=== PATIENT | male | born 1950 | race Caucasian/White ===

== ENCOUNTER 2020-01-31 17:00 | Outpatient (CLI) | payer MEDICARE, SELFPAY ==
[2020-01-31 18:06] LABS: Alanine Aminotransferase 32 U/L (4-50); Albumin Level 4.3 g/dL (3.5-5.1); Alkaline Phosphatase 100 U/L (38-126); Aspartate Amino Transferase 42 U/L (17-59); Bilirubin,Total 0.8 mg/dL (0.2-1.3); Blood Urea Nitrogen 17 mg/dL (9-20); Carbon Dioxide 25 mmol/L (22-30); Chloride 106 mmol/L (98-107); Cholesterol 137 mg/dL (0-200); Estimated Glomerular Filt Rate > 60; Glucose 78 mg/dL (75-110); HDL Direct 44 mg/dL; Potassium 3.7 mmol/L (3.4-5.0); Sodium 140 mmol/L (137-145); Triglycerides 86 mg/dL (<150)
[2020-01-31 18:19] LABS: LDL Cholesterol Direct 68 mg/dL
[2020-01-31 18:35] LABS: Hemoglobin A1C 6.6 % (<5.7); Prostate Specific Antigen 0.5 ng/mL (< OR = 4.0)
[2020-01-31 18:36] LABS: MALB Creatinine Ratio 10.9 mg/g (0-30); Microalbumin Urine Random 9.9 mg/L (0-16.7)
== END 2020-01-31 17:01 | disposition home or self-care (01) ==
PROVIDERS: PCP Internal Medicine; Visit Provider Nurse Practitioner
DX: E11.59 Type 2 diabetes mellitus with other circulatory complications (principal); Z79.4 Long term (current) use of insulin; E78.5 Hyperlipidemia, unspecified; Z12.5 Encounter for screening for malignant neoplasm of prostate
CPT/HCPCS: 36415; 80053; 80061; 82043; 83036; 84153; G0103

== ENCOUNTER 2020-03-12 13:26 | Outpatient (CLI) | payer MEDICARE, SELFPAY ==
--- NOTE | ~2020-03-12 | XR_ITS ---
EXAMINATION: XR chest 2V EXAM DATE: 03/12/2020 13:41 INDICATION: Cough without fever. TECHNIQUE: Frontal and lateral projections of the chest obtained and reviewed. Comparison is made to prior examination from 10/22/2014. FINDINGS: Left upper lobe granuloma. Small amount of left basilar linear scarring. The lungs are oth erwise clear. There are no pleural effusions. The cardiomediastinal silhouette is within normal ny its. There is no pneumothorax suspected. There are mild bony degenerative changes. IMPRESSION: No acute cardiopulmonary findings. Reviewed, dictated and finalized at location B.
== END 2020-03-12 13:27 | disposition home or self-care (01) ==
PROVIDERS: PCP Internal Medicine; Visit Provider Internal Medicine
DX: R05 Cough (principal)
CPT/HCPCS: 71046

== ENCOUNTER 2020-08-18 12:58 | Outpatient (CLI) | payer MEDICARE, SELFPAY ==
[2020-08-18 14:10] LABS: Hemoglobin A1C 6.3 % (<5.7)
== END 2020-08-18 12:59 | disposition home or self-care (01) ==
LOC: ANHLAB 12:59
PROVIDERS: PCP Internal Medicine; Visit Provider Internal Medicine
DX: E11.59 Type 2 diabetes mellitus with other circulatory complications (principal); I10 Essential (primary) hypertension
CPT/HCPCS: 36415; 83036

== ENCOUNTER 2021-02-13 14:37 | Outpatient (CLI) | payer MEDICARE, SELFPAY ==
[2021-02-13 16:29] LABS: Alanine Aminotransferase 43 U/L (4-50); Albumin Level 4.1 g/dL (3.5-5.1); Alkaline Phosphatase 105 U/L (38-126); Anion Gap 8 mmol/L (8-16); Aspartate Amino Transferase 47 U/L (17-59); Blood Urea Nitrogen 20 mg/dL (9-20); Calcium 9.4 mg/dL (8.4-10.2); Carbon Dioxide 28 mmol/L (22-30); Chloride 108 mmol/L (98-107); Cholesterol 152 mg/dL (0-200); Estimated Glomerular Filt Rate 60; Glucose 151 mg/dL (75-110); HDL Direct 43 mg/dL; Potassium 4.1 mmol/L (3.4-5.0); Sodium 144 mmol/L (137-145); Triglycerides 91 mg/dL (<150)
[2021-02-13 16:40] LABS: LDL Cholesterol Direct 73 mg/dL
[2021-02-13 17:08] LABS: Hemoglobin A1C 6.5 % (<5.7)
[2021-02-13 17:16] LABS: Prostate Specific Antigen 0.5 ng/mL (< OR = 4.0)
== END 2021-02-13 14:38 | disposition home or self-care (01) ==
PROVIDERS: PCP Internal Medicine; Visit Provider Nurse Practitioner
DX: E78.5 Hyperlipidemia, unspecified (principal); Z12.5 Encounter for screening for malignant neoplasm of prostate; E11.9 Type 2 diabetes mellitus without complications
CPT/HCPCS: 36415; 80053; 80061; 83036; 84153; G0103

== ENCOUNTER 2021-08-20 17:37 | Outpatient (CLI) | payer MEDICARE, SELFPAY ==
[2021-08-20 18:28] LABS: Alanine Aminotransferase 48 U/L (4-50); Albumin Level 4.6 g/dL (3.5-5.1); Alkaline Phosphatase 118 U/L (38-126); Anion Gap 12 mmol/L (8-16); Aspartate Amino Transferase 47 U/L (17-59); Blood Urea Nitrogen 16 mg/dL (9-20); Calcium 9.3 mg/dL (8.4-10.2); Carbon Dioxide 24 mmol/L (22-30); Chloride 106 mmol/L (98-107); Cholesterol 145 mg/dL (0-200); Estimated Glomerular Filt Rate > 60; Glucose 61 mg/dL (65-110); HDL Direct 45 mg/dL; Potassium 3.2 mmol/L (3.4-5.0); Sodium 142 mmol/L (137-145); Triglycerides 136 mg/dL (<150)
[2021-08-20 18:39] LABS: LDL Cholesterol Direct 70 mg/dL
[2021-08-20 19:08] LABS: Creatinine Urine 129.8 mg/dL
[2021-08-20 19:12] LABS: MALB Creatinine Ratio 9.9 mg/g (0-30); Microalbumin Urine Random 12.9 mg/L (0-16.7)
== END 2021-08-20 17:38 | disposition home or self-care (01) ==
LOC: ANHLAB 17:39
PROVIDERS: PCP Internal Medicine; Visit Provider Nurse Practitioner
DX: E11.59 Type 2 diabetes mellitus with other circulatory complications (principal); E78.2 Mixed hyperlipidemia
CPT/HCPCS: 36415; 80053; 80061; 82043; 83036

== ENCOUNTER 2021-11-03 08:36 | Outpatient (CLI) | payer MEDICARE, SELFPAY ==
[2021-11-03 09:10] LABS: Potassium 4.1 mmol/L (3.4-5.0)
== END 2021-11-03 08:37 | disposition home or self-care (01) ==
PROVIDERS: PCP Internal Medicine; Visit Provider Nurse Practitioner
DX: E87.6 Hypokalemia (principal); R63.5 Abnormal weight gain
CPT/HCPCS: 36415; 84132; 84443

== ENCOUNTER 2021-11-30 09:24 | Outpatient (CLI) | payer MEDICARE, SELFPAY ==
--- NOTE | ~2021-11-30 | NM_ITS ---
EXAMINATION: NM lynn stress w perfusion DATE: 11/30/2021 11:23 INDICATION: Unspecified chest pain TECHNIQUE: Rest images were obtained following intravenous administration of 9.4 mCi Tc99m tetrofosmi n (Myoview). Data was reconstructed into short axis and horizontal and vertical long axis SPECT image s. The patient declined the stress portion of the examination with no additional injection of radioph armaceutical or imaging. Data was reconstructed into short axis and horizontal and vertical long axis SPECT images. COMPARISON: 12/20/2007 FINDINGS: There is a similar pattern of mild decreased activity along the inferior wall from the apex to the base likely related to diaphragmatic attenuation artifact although could not exclude decrease d perfusion either related to ischemia or infarct. IMPRESSION: 1. Limited rest perfusion only study with study terminated at patient request prior to induction of s tress with no post stress or gated imaging obtained. 2. Decreased activity along the inferior wall similar to that seen on the prior study likely related to diaphragmatic attenuation artifact although differential includes ischemia or infarct. Reviewed, dictated and finalized at location A. IMPRESSION: 1. Limited rest perfusion only study with study terminated at patient request p rior to induction of stress with no post stress or gated imaging obtained. 2. Decreased activity along the inferior wall similar to that seen on the prior study likely related to diaphragmatic attenuation artifact although differenti al includes ischemia or infarct.
== END 2021-11-30 09:25 | disposition home or self-care (01) ==
PROVIDERS: PCP Internal Medicine; Visit Provider Nurse Practitioner
DX: R07.9 Chest pain, unspecified (principal)
CPT/HCPCS: 78452; A9502

== ENCOUNTER 2022-03-03 08:58 | Outpatient (CLI) | payer MEDICARE, SELFPAY ==
[2022-03-03 10:07] LABS: Alanine Aminotransferase 25 U/L (6-50); Albumin Level 4.1 g/dL (3.5-5.1); Alkaline Phosphatase 88 U/L (38-126); Anion Gap 6 mmol/L (8-16); Aspartate Amino Transferase 34 U/L (17-59); Bilirubin,Total 0.8 mg/dL (0.2-1.3); Blood Urea Nitrogen 23 mg/dL (9-20); Calcium 8.7 mg/dL (8.4-10.2); Carbon Dioxide 26 mmol/L (22-30); Chloride 112 mmol/L (98-107); Cholesterol 106 mg/dL (0-200); Estimated Glomerular Filt Rate 60; Glucose 62 mg/dL (65-110); HDL Direct 37 mg/dL; Sodium 144 mmol/L (137-145); Triglycerides 62 mg/dL (<150)
[2022-03-03 10:08] LABS: Hemoglobin A1C 5.1 % (<5.7)
[2022-03-03 10:19] LABS: LDL Cholesterol Direct 48 mg/dL
[2022-03-03 10:38] LABS: Prostate Specific Antigen 0.5 ng/mL (< OR = 4.0)
== END 2022-03-03 08:59 | disposition home or self-care (01) ==
PROVIDERS: PCP Internal Medicine; Visit Provider Internal Medicine
DX: E11.59 Type 2 diabetes mellitus with other circulatory complications (principal); I10 Essential (primary) hypertension; Z12.5 Encounter for screening for malignant neoplasm of prostate; E78.5 Hyperlipidemia, unspecified
CPT/HCPCS: 36415; 80053; 80061; 83036; 84153; G0103

== ENCOUNTER 2022-09-08 13:44 | Outpatient (CLI) | payer MEDICARE, SELFPAY ==
[2022-09-08 14:36] LABS: Hemoglobin A1C 4.6 % (<5.7)
[2022-09-08 14:41] LABS: Alanine Aminotransferase 38 U/L (6-50); Albumin Level 4.4 g/dL (3.5-5.1); Alkaline Phosphatase 151 U/L (38-126); Anion Gap 9 mmol/L (8-16); Aspartate Amino Transferase 44 U/L (17-59); Bilirubin,Total 1.2 mg/dL (0.2-1.3); Blood Urea Nitrogen 23 mg/dL (9-20); Calcium 9.5 mg/dL (8.4-10.2); Carbon Dioxide 24 mmol/L (22-30); Chloride 107 mmol/L (98-107); Cholesterol 121 mg/dL (0-200); Estimated Glomerular Filt Rate 60; Glucose 102 mg/dL (65-110); HDL Direct 42 mg/dL; Potassium 4.6 mmol/L (3.4-5.0); Sodium 140 mmol/L (137-145); Triglycerides 76 mg/dL (<150)
[2022-09-08 14:52] LABS: LDL Cholesterol Direct 52 mg/dL
[2022-09-08 15:10] LABS: Prostate Specific Antigen 0.7 ng/mL (< OR = 4.0)
== END 2022-09-08 13:45 | disposition home or self-care (01) ==
LOC: ANHLAB 13:47
PROVIDERS: PCP Internal Medicine; Visit Provider Nurse Practitioner
DX: E11.59 Type 2 diabetes mellitus with other circulatory complications (principal); E78.2 Mixed hyperlipidemia; Z12.5 Encounter for screening for malignant neoplasm of prostate
CPT/HCPCS: 36415; 80053; 80061; 83036; 84153; G0103

== ENCOUNTER 2022-09-09 13:19 | Outpatient (CLI) | payer MEDICARE, SELFPAY ==
[2022-09-09 14:46] LABS: Creatinine Urine 64.7 mg/dL
[2022-09-09 15:22] LABS: MALB Creatinine Ratio < 9.3 mg/g (0-30); Microalbumin Urine Random < 6.0 mg/L (0-16.7)
== END 2022-09-09 13:20 | disposition home or self-care (01) ==
LOC: ANHLAB 13:19
PROVIDERS: PCP Internal Medicine; Visit Provider Nurse Practitioner
DX: E11.59 Type 2 diabetes mellitus with other circulatory complications (principal)
CPT/HCPCS: 82043

== ENCOUNTER 2022-09-24 09:15 | Outpatient (CLI) | payer MEDICARE, SELFPAY ==
--- NOTE | 2022-09-24 09:38 | ECHO_ITS ---
Patient Info Name: Eric Junior Age: 72 years : 1950 Gender: Male Ht: 70 in Wt: 255 lbs BSA: 2.43 m2 HR: 78 bpm BP: 139 / 59 mmHg Technical Quality: Fair Exam Date: 09/24/2022 9:44 AM Exam Location: [facility] Patient Status: Outpatient Admit Date: 09/24/2022 Staff Ordering Physician: Willy Baca APRN Director Customer: Paola Sarabia RDCS Attending Provider: Willy Baca APRN Referring Physician: Keven VILLATORO; Exam Type: CA echo doppler color flow Study Info Indications I48.0 - Paroxysmal atrial fibrillation Complete two-dimensional, color flow and Doppler transthoracic echocardiogram is performed. Summary 1. Complete two-dimensional, color flow and Doppler transthoracic echocardiogram is performed. 2. Left ventricular chamber dimension is normal. 3. Left ventricular systolic function is normal, estimated at 65-70%. 4. There is mildly increased left ventricular wall thickness. 5. The left ventricular diastolic function is grade II diastolic dysfunction. 6. E/e' 16 is elevated. 7. Global longitudinal strain is abnormal at -14.8%. 8. Left atrial chamber dimension is moderately enlarged. 9. There is moderate aortic valve sclerosis. 10. The mitral valve has moderately calcified annulus. 11. There is mild mitral valve regurgitation. 12. There is trace tricuspid valve regurgitation. 13. Severe pulmonary hypertension, estimated pulmonary arterial systolic pressure is 62 mmHg. Left Ventricle E/e' 16 is elevated. Global longitudinal strain is abnormal at -14.8%. Left ventricular chamber dimension is normal. Left ventricular systolic function is normal, estimated at 65-70%. There is mildly increased left ventricular wall thickness. The left ventricular diastolic function is grade II diastolic dysfunction. Right Ventricle Right ventricular systolic function is normal and with normal TAPSE 2.2 cm. Right ventricular chamber dimension is normal. Left Atria Left atrial chamber dimension is moderately enlarged. Right Atria Right atrial chamber dimension is normal. Aortic Valve The aortic valve is trileaflet. There is moderate aortic valve sclerosis. There is no aortic valve stenosis. There is no aortic valve regurgitation. Pulmonic Valve There is no pulmonic regurgitation. Mitral Valve The mitral valve has moderately calcified annulus. There is no mitral valve stenosis. There is mild mitral valve regurgitation. Tricuspid Valve There is trace tricuspid valve regurgitation. Severe pulmonary hypertension, estimated pulmonary arterial systolic pressure is 62 mmHg. Pericardium/Pleural There is no pericardial effusion. Inferior Vena Cava Normal inferior vena cava with >50% collapse upon inspiration consistent with normal right atrial pressure, 5 mmHg. Aorta The aortic root size at the sinus of Valsalva is normal. Left Ventricular Outflow Tract Name Value Normal LVOT 2D LVOT Diameter 2.0 cm LVOT Doppler LVOT Peak Gradient 10 mmHg LVOT Mean Gradient 7 mmHg LVOT VTI 40 c
== END 2022-09-24 09:16 | disposition home or self-care (01) ==
LOC: ANHCARD 09:17
PROVIDERS: PCP Internal Medicine; Visit Provider Nurse Practitioner
DX: I48.91 Unspecified atrial fibrillation (principal)
CPT/HCPCS: 93306

== ENCOUNTER 2022-10-18 12:30 | Observation (INO) | payer MEDICARE, SELFPAY ==
[2022-10-18] VITALS (20 sets, daily range): BP systolic 120–149; BP diastolic 50–71; PULSE 85–99; RESP 13–20; TEMP 36.4–36.9; O2SAT 95–97; BMI 37.0; BMI 37.6
--- NOTE | ~2022-10-18 | CT_ITS ---
EXAMINATION: CT brain wo con DATE: 10/18/2022 15:59 INDICATION: Fall. TECHNIQUE: Computed tomography (CT) of the head was performed without intravenous contrast. The mA wa s adjusted according to patient size. Iterative reconstruction technique was employed. The dose-lengt h product was 756.67 mGy-cm. COMPARISON: None FINDINGS: There is an old infarct in the right thalamus. There are scattered areas of low attenuation in the cerebral white matter and carey. There is no intracranial hemorrhage, acute infarction, or abn ormal intracranial mass lesion. The ventricles are normal in size. There are likely changes of right ocular lens replacement surgery. There is extensive dental disease. There is mild mucosal thickening in the paranasal sinuses. The mastoid air cells are normal. IMPRESSION: 1. 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 2. Mild nonspecific cerebral white matter disease and pontine disease, which likely represents chroni c small vessel ischemic disease. Reviewed, dictated and finalized at location A. ER DIETARY SERVICE MANAGER IMPRESSION: 1. 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 2. Mild nonspecific cerebral white matter disease and pontine disease, which laura degroot represents chronic small vessel ischemic disease.
--- NOTE | ~2022-10-18 | CT_ITS ---
EXAMINATION: CT cervical spine wo con DATE: 10/18/2022 15:59 INDICATION: Neck injury. Fall. TECHNIQUE: Computed tomography (CT) of the cervical spine was performed without intravenous contrast. Automated exposure control and iterative reconstruction technique were employed. The dose-length pro duct was 469.44 mGy-cm. COMPARISON: None FINDINGS: There is 5 degrees dextrocurvature of cervical spine. There is 2 mm anterolisthesis of C4 o n C5 and C7 on T1. Vertebral body heights are normal. There is mildly decreased disc height at C2-C3 and C4-C5 and severely decreased disc height at C5-C6 and C6-C7. The following disc levels are specif ically discussed: C2-C3: There is severe right and moderate left uncovertebral joint osteoarthritis. There is severe bi lateral facet joint osteoarthritis. There is moderate right and mild left neural foraminal stenosis. There is no central canal stenosis. C3-C4: There is severe right and mild left uncovertebral joint osteoarthritis. There is severe bilate ral facet joint osteoarthritis. There is moderate right and mild left neural foraminal stenosis. Ther e is mild central canal stenosis. C4-C5: There is mild right and severe left uncovertebral joint osteoarthritis. There is mild right an d severe left facet joint osteoarthritis. There is moderate left neural foraminal stenosis. There is mild central canal stenosis. C5-C6: There is severe bilateral uncovertebral joint osteoarthritis. There is severe bilateral facet joint osteoarthritis. There is moderate bilateral neural foraminal stenosis. There is mild central ca nal stenosis. C6-C7: There is severe bilateral uncovertebral joint osteoarthritis. There is severe bilateral facet joint osteoarthritis. There is mild bilateral neural foraminal stenosis. There is mild central canal stenosis. C7-T1: There is no uncovertebral joint osteoarthritis. There is severe bilateral facet joint osteoart hritis. There is mild bilateral neural foraminal stenosis. There is mild central canal stenosis. IMPRESSION: 1. No fracture. 2. Severe cervical spondylosis. Reviewed, dictated and finalized at location A. PATIONAL THERAPIST HOME BASED
--- NOTE | ~2022-10-18 | XR_ITS ---
EXAMINATION: XR hip RT min 3V w AP pelvis DATE: 10/18/2022 16:40 INDICATION: Right hip pain post fall TECHNIQUE: Anteroposterior view of the pelvis and anteroposterior, frog leg and cross-table lateral v iews of the right hip were obtained. COMPARISON: None. FINDINGS: Alignment is normal. No evident fracture. Visualization of the lumbar spine and sacrum is poor due to patient body habitus. Moderate bilateral hip osteoarthritis. IMPRESSION: 1. Moderate bilateral hip osteoarthritis. No acute osseous abnormality. Reviewed, dictated and finalized at location A. TGENOLOGIST
--- NOTE | ~2022-10-18 | XR_ITS ---
EXAMINATION: XR chest 1V portable DATE: 10/18/2022 16:40 INDICATION: Syncope and fall TECHNIQUE: frontal view of the chest was obtained on 2 radiographs. COMPARISON: Chest radiograph dated 03/12/[address] dated 10/18/2022 FINDINGS: Calcified nodule in the left upper lung zone consistent with old granulomatous disease. Pulmonary vas cular congestion. Mild left perihilar opacities. No pleural effusion or pneumothorax. The cardiomedia stinal silhouette is within normal limits for AP technique. Visualized bones and soft tissues are unr emarkable. IMPRESSION: 1. Pulmonary vascular congestion and mild left perihilar opacities and favor pulmonary edema over pne umonia given the smooth septal line thickening evident in the visualized upper lung zones on cervical spine CT. Reviewed, dictated and finalized at location A. HOLDER IMPRESSION: 1. Pulmonary vascular congestion and mild left perihilar opacities and favor pu lmonary edema over pneumonia given the smooth septal line thickening evident in the visualized upper lung zones on cervical spine CT.
[2022-10-18 12:47] LABS: Glucose Point of Care 123 mg/dl (65-105)
--- NOTE | 2022-10-18 13:24 | ED.GENADULT ---
HPI - General Adult General Chief complaint: Fall Stated complaint: glf, butt pain, low bs Time Seen by Provider: 10/18/22 13:12 Source: patient and EMS Mode of arrival: EMS Limitations: no limitations History of Present Illness HPI narrative: 72 years old the Y male lives alone, bilateral below-knee amputation, got up from sleep, sat on the bed and then found himself on the floor next to bed. With pain at the right hip. Patient does not know how he got to the floor, he reported losing his consciousness ending end up on the floor. Patient did not eat his breakfast or take his regular medication prior to arrival. After waking up, called 911 who brought him to the emergency room. Patient denies having similar symptoms. Patient reports starting on Eliquis 1 month ago secondary to atrial fibrillation. History of diabetes, hypertension, hyperlipidemia, atrial fibrillation, DNR not on antiplatelet medication. Related Data Home Medications Medication Instructions Recorded Confirmed klkiziru-fir-lwybj acid 0.4 1 tablet PO DAILY 08/01/19 09/15/22 mg-lycopene 300 mcg-lutein 250 mcg tablet (Centrum Silver) omega-3 fatty acids 1,000 mg 1,000 mg PO BID 08/25/21 09/15/22 capsule (Fish Oil Concentrate) Allergies Allergy/AdvReac Type Severity Reaction Status Date / Time vancomycin Allergy Intermediate Rash Verified 10/18/22 12:49 penicillin G Allergy Mild Unknown Verified 10/18/22 12:49 DAVE Inhibitors Allergy Unknown Unknown Verified 10/18/22 12:49 hydralazine Allergy Unknown Unknown Verified 10/18/22 12:49 onion Allergy Unknown Unknown Verified 10/18/22 12:49 Penicillins Allergy Unknown Unknown Verified 10/18/22 12:49 tazobactam Allergy Unknown BETALACTAMASE Verified 10/18/22 12:49 INHIBITORS Review of Systems Review of Systems: All systems reviewed & are unremarkable except as noted in HPI and below PMFSH Past Medical History Medical History Essential (primary) hypertension Heart murmur Mixed hyperlipidemia Type 2 diabetes mellitus with other circulatory complications Surgical History Surgical History Amputated left leg Amputated right leg H/O bursectomy History of eye surgery Family History Family History Father Cerebrovascular accident Mother Cerebrovascular accident Sibling Family history of diabetes mellitus in first degree relative Other Diabetes mellitus Social History Social History Years smoked: 7 Smoking status: Former smoker Tobacco type: cigars Second hand tobacco smoke exposure: No Smoking end date: 11/23/06 Alcohol intake: never Substance use: never Substance use type: does not use Exam Narrative: General appearance: Well-developed, well-nourished Skin: Normal color Head: Normocephalic, nontraumatic Eyes: Clear conjunctiva ENT: Oropharynx normal, ears normal, nose normal Neck: Supple, nontender Chest and respiratory: Airway patent, no respiratory distress, no accessory muscle use Heart: Regular rate/rhythm Abdomen: Soft, nontender, no organomegaly, quiet bowel sounds, large abdominal incisional hernia Vascular: Normal peripheral pulses, normal capillary refill. Musculoskeletal: Below-knee amputation bilaterally Neurologic: Alert and oriented ?3, BAIL BONDING AGENT is normal as tested, no gross motor deficit Course Consultations Consultation #1: Dr. Cutler Date: 10/18/22 Time: 17:22 Vital Signs Vital signs: Vital Signs Temperature 36.6 C 10/18/22 12:33 Pulse Rate 93 02/0
--- NOTE | 2022-10-18 15:13 | ECG_ITS ---
Measurements Intervals [place] Rate: 90 P: 50 VA: 176 QRS: 35 QRSD: 93 T: 63 QT: 379 QTc: 465 Interpretive Statements SINUS RHYTHM BASELINE ARTIFACT CANNOT RULE OUT SEPTAL MYOCARDIAL INFARCTION, OF INDETERMINATE AGE BORDERLINE ECG NO PREVIOUS ECG AVAILABLE FOR COMPARISON Electronically Signed On 10-18-2022 16:25:54 MEDICAL BILLING AND CODING SPECIALIST by Austin Chapman M.D.
[2022-10-18 16:26] LABS: Basophils Percent Auto 0.3 % (0.2-1.2); Eosinophils Percent Auto 0.4 % (0-4.4); Hematocrit 28.3 % (42.0-52.0); Hemoglobin 9.5 g/dL (14.0-18.0); Immature Granulocyte Absolute 0.05 K/mm3 (0.00-0.031); Immature Granulocyte Percent A 0.6 % (0-0.5); Lymphocytes Percent Auto 10.3 % (18.3-44.2); Mean Corpuscular HGB Conc 33.6 g/dl (32-36); Mean Corpuscular Hemoglobin 33.9 pg (26-34); Mean Corpuscular Volume 101.1 fl (80-100); Mean Platelet Volume 10.7 fl (7.4-10.4); Monocytes Absolute Auto 0.3 K/mm3 (0.1-0.6); Monocytes Percent Auto 4.4 % (2.6-8.5); Neutrophils Absolute Auto 6.5 K/mm3 (1.3-6.7); Platelet Count Result 157 k/mm3 (150-375); Red Cell Distribution Width 16.5 % (11.5-14.5); White Blood Count 7.8 K/mm3 (4.5-10.0)
[2022-10-18 16:37] LABS: INR 1.4; Prothrombin Time 16.2 Seconds (11.1-14.7)
[2022-10-18 16:38] LABS: Partial Thromboplastin Time 49.7 SECONDS (22.3-36.8)
[2022-10-18 16:47] LABS: Alanine Aminotransferase 31 U/L (6-50); Albumin Level 3.9 g/dL (3.5-5.1); Alkaline Phosphatase 146 U/L (38-126); Anion Gap 5 mmol/L (8-16); Aspartate Amino Transferase 48 U/L (17-59); Bilirubin,Total 0.9 mg/dL (0.2-1.3); Blood Urea Nitrogen 26 mg/dL (9-20); Calcium 8.8 mg/dL (8.4-10.2); Carbon Dioxide 26 mmol/L (22-30); Chloride 108 mmol/L (98-107); Estimated CRCL calculation 64 ml/min; Estimated Glomerular Filt Rate 60; Glucose 38 mg/dL (65-110); Potassium 3.8 mmol/L (3.4-5.0); Sodium 139 mmol/L (137-145)
[2022-10-18 16:56] LABS: Troponin I 0.101 ng/mL (0.000-0.034)
[2022-10-18 17:50] LABS: Appearance Urine Clear (Clear); Bilirubin Urine Negative (Negative); Blood Urine Negative (Negative); Color Urine Yellow (Yellow); Glucose Urine UA Negative (Negative); Ketones Urine Negative (Negative); Leukocyte Esterase Ur Negative LEU/UL (Negative); Nitrate Urine Negative (Negative); Protein Urine Negative (Negative); Specific Grav Ur 1.025 (1.001-1.035); Urobilinogen Urine 0.2 mg/dL (<2.0); pH Urine 5.5 (5.0-9.0)
[2022-10-18 17:52] LABS: Add Urine Microscopic? NO
[2022-10-18 19:15] LABS: Glucose Point of Care 53 mg/dl (65-105)
--- NOTE | 2022-10-18 19:48 | PC.NURSE ---
Patient given apple juice and jocelyn crackers for POC blood glucose of 53.
--- NOTE | 2022-10-18 19:55 | PC.NURSE ---
This patient, Eric Junior, was admitted to IMU Room 204-01. Patient/family oriented to hospital policies and general routines including ID bracelet, bed and alarms, visiting hours, pain management, procedures, bathroom and other care routines, personal items, smoking policy, room service/diet, and visiting hours. Information on how to activate the Rapid Response Team has been discussed. Patient/Family are encouraged to report perceived risks to care and to ask questions if they do not understand what they are told or what they should do.
[2022-10-18 20:09] LABS: Troponin I 0.104 ng/mL (0.000-0.034)
[2022-10-18 20:11] LABS: Glucose Point of Care 69 mg/dl (65-105)
[2022-10-18 20:48] LABS: Glucose Point of Care 118 mg/dl (65-105)
--- NOTE | 2022-10-18 22:04 | PM.IMHP ---
H&P: HPI History of Present Illness Date/Time: 10/18/22 22:04 Chief Complaint: Fall Narrative: This is a 72-year-old male patient who has a history of diabetes type 2 and bilateral rilgz-mwi-bhjz amputations. The patient lives home alone. The patient stated he remembers sitting up on the side the bed and the next thing he was on the floor looking up at the ceiling. The patient was complaining of right hip pain. The patient does not recall losing consciousness or hitting his head. The patient had not eaten any breakfast this morning. After waking up on the floor the patient then called 911. The patient does have a history of atrial fibrillation and has been on Eliquis for the last month. H&H is 9.5 and 28.3. Patient's blood glucose was 38 minutes 53 and came up to 118. I assessed him he was alert orientated x3. Patient's troponins are 0.101, 0.104, 0.147. Patient has no complaints of chest pain. Hip and pelvis x-ray was read as moderate bilateral hip osteoarthritis. Chest x-ray was read as the following1. Pulmonary vascular congestion and mild left perihilar opacities and favor pulmonary edema over pneumonia given the smooth septal line thickening evident in the visualized upper lung zones on cervical spine CT. Cervical spine CT was read as no fracture with severe cervical spondylosis. Head CT was read as old infarct in the right thalamus. Mild nonspecific cerebral white matter disease with on pontine disease, which likely represents chronic small vessel ischemic disease. The patient is being admitted to observation status on the date of service of 10/18/2022 Review of Systems Review of Systems: See HPi All systems reviewed & are unremarkable except as noted in HPI and below Constitutional: Constitutional: Reports as per HPI and Reports no additional constitutional complaints Eyes: Eyes: Reports as per HPI and Reports no additional eye complaints ENT: Reports system reviewed and no additional complaints, except as documented and Reports Normal hearing present Cardiovascular: Cardiovascular: Reports no additional cardiovascular complaints Respiratory: Respiratory: Reports no additional respiratory complaints and Reports no additional respiratory complaints Gastrointestinal: Gastrointestinal: Reports as per HPI and Reports no additional gastrointestinal complaints Musculoskeletal: Musculoskeletal: Reports no additional musculoskeletal complaints Integumentary/Breasts: Skin/Breast: Reports system reviewed and no additional complaints, except as docu and Reports as per HPI Neurologic: Reports system reviewed and no additional complaints, except as documented, Reports as per HPI and Reports Normal hearing present Psychiatric: Psychiatric: Reports no additional psychiatric complaints and Reports as per HPI Endocrine: Endocrine: Reports no additional endocrine complaints Hematologic/Lymphatic: Hematologic/Lymphatic: Reports no additional hematologic/lymphatic complaints Allergic/Immunologic: Allergic/Immunologic: Reports no additional allergic/immunologic complaints [facility] Past Medical History Medical History (Updated 10/19/22 @ 01:03 by Gillian Grace NP) Essential (primary) hypertension Heart murmur History of CVA (cerebrovascular accident) Mixed hyperlipidemia Type 2 diabetes mellitus with other circulatory complications Surgical History Surgical History (Updated 10/19/22 @ 00:56 by Gillian Grace NP) Amputated left leg Amputated right leg H/O bursectomy H/O cataract extraction H/O hernia repair History of eye surgery Family History Family History Father Cerebrovascular accident Mother Cerebrovascular accident Sibling Family history of diabetes mellitus in first degree relative Other Diabetes mellitus Social History Social History (Updated 10/19/22 @ 00:58 by Gillian Grace NP) Social History: The patient lives alone. He is single
[2022-10-18 22:55] LABS: Troponin I 0.147 ng/mL (0.000-0.034)
[2022-10-19] VITALS (13 sets, daily range): BP systolic 115–144; BP diastolic 47–74; PULSE 64–95; RESP 16–20; TEMP 36.6–37.3; O2SAT 93–97
--- NOTE | 2022-10-19 | ECHO_ITS ---
Patient Info Name: Eric Junior Age: 72 years : 1950 Gender: Male Ht: 70 in Wt: 262 lbs BSA: 2.47 m2 HR: 83 bpm BP: 129 / 52 mmHg Heart Rhythm: Sinus Rhythm Technical Quality: Fair Exam Date: 10/19/2022 1:00 PM Exam Location: [facility] Card Pulmonary Patient Status: Inpatient Admit Date: 10/18/2022 Staff Ordering Physician: Mart Arreguin MD (desirae/dieudonne) Clinical Registered Nurse: Bren Strickland RDCS Attending Provider: Alison Hernandez MD Referring Physician: Rodríguez NUÑEZ; Exam Type: CA echo dop color flow w con Study Info Indications - elevated troponin Complete two-dimensional, color flow and Doppler transthoracic echocardiogram is performed with contrast to opacify the left ventricle and to improve the deliniation of the left ventricle endocardial borders. Contrast/Agitated Saline Contrast/Ag. Saline: Definity Amount: 3.00 ml Administered By: Bren Strickland RDCS Existing IV Access: Yes IV Access Condition: patent with no signs of infiltration Summary 1. Left ventricular chamber dimension is normal. 2. Left ventricular systolic function is normal, estimated at 65-70%. 3. There is mildly increased left ventricular wall thickness. 4. The left ventricular diastolic function is grade I diastolic dysfunction. 5. Right ventricular systolic function is normal. 6. Left atrial chamber dimension is mildly enlarged. 7. Right atrial chamber dimension is mildly enlarged. 8. There is mild mitral valve regurgitation. 9. There is mild tricuspid valve regurgitation. Left Ventricle Left ventricular chamber dimension is normal. Left ventricular systolic function is normal, estimated at 65-70%. There is mildly increased left ventricular wall thickness. The left ventricular diastolic function is grade I diastolic dysfunction. Right Ventricle Right ventricular chamber dimension is normal. Right ventricular systolic function is normal. Left Atria Left atrial chamber dimension is mildly enlarged. Right Atria Right atrial chamber dimension is mildly enlarged. Atrial Septum Intact interatrial septum visualized by color flow imaging. Aortic Valve The aortic valve is trileaflet. There is moderate aortic valve sclerosis. There is no aortic valve stenosis. There is no aortic valve regurgitation. There is mild aortic valve calcification. Pulmonic Valve The pulmonic valve is not well visualized. Mitral Valve The mitral valve has thickened leaflets. There is no mitral valve stenosis. There is mild mitral valve regurgitation. The mitral valve annulus is moderately calcified. Tricuspid Valve There is no significant tricuspid valve stenosis. There is mild tricuspid valve regurgitation. Pericardium/Pleural The pericardium appears epicardial fat pad. There is no pericardial effusion. Inferior Vena Cava Dilated inferior vena cava with >50% collapse upon inspiration consistent with elevated right atrial pressure, 8 mmHg. Aorta The aortic root size at the sinus of Valsalva is normal. Left Ventricular Outflow Tract Name Value Normal LVOT 2D LVOT Diameter 1.97 cm LVOT Doppler
[2022-10-19 05:14] LABS: Basophils Percent Auto 0.4 % (0.2-1.2); Eosinophils Absolute Auto 0.2 K/mm3 (0-0.3); Hematocrit 25.5 % (42.0-52.0); Hemoglobin 8.3 g/dL (14.0-18.0); Immature Granulocyte Absolute 0.02 K/mm3 (0.00-0.031); Immature Granulocyte Percent A 0.4 % (0-0.5); Lymphocytes Absolute Auto 1.22 K/mm3 (0.9-3.2); Lymphocytes Percent Auto 24.5 % (18.3-44.2); Mean Corpuscular HGB Conc 32.5 g/dl (32-36); Mean Corpuscular Hemoglobin 33.5 pg (26-34); Mean Corpuscular Volume 102.8 fl (80-100); Mean Platelet Volume 11.2 fl (7.4-10.4); Monocytes Absolute Auto 0.6 K/mm3 (0.1-0.6); Monocytes Percent Auto 11.2 % (2.6-8.5); Neutrophils Percent Auto 59.5 % (45.5-73.1); Platelet Count Result 151 k/mm3 (150-375); Red Blood Count 2.48 M/mm3 (4.6-6.20); Red Cell Distribution Width 16.7 % (11.5-14.5)
[2022-10-19 05:23] LABS: Alanine Aminotransferase 28 U/L (6-50); Albumin Level 3.3 g/dL (3.5-5.1); Alkaline Phosphatase 112 U/L (38-126); Anion Gap 3 mmol/L (8-16); Aspartate Amino Transferase 56 U/L (17-59); Bilirubin,Total 0.9 mg/dL (0.2-1.3); Blood Urea Nitrogen 25 mg/dL (9-20); Calcium 8.2 mg/dL (8.4-10.2); Carbon Dioxide 27 mmol/L (22-30); Chloride 106 mmol/L (98-107); Estimated CRCL calculation 59 ml/min; Estimated Glomerular Filt Rate 54; Glucose 107 mg/dL (65-110); Potassium 4.1 mmol/L (3.4-5.0); Sodium 136 mmol/L (137-145)
--- NOTE | 2022-10-19 11:24 | PM.CNCAR ---
Assessment and Plan Assessment and plan (1) Elevated troponin: Code(s): R77.8 - Other specified abnormalities of plasma proteins Status: Acute (2) Syncope and collapse: Code(s): R55 - Syncope and collapse Status: Acute (3) Diabetic hypoglycemia: Code(s): E11.649 - Type 2 diabetes mellitus with hypoglycemia without coma Status: Acute (4) Anemia: Code(s): D64.9 - Anemia, unspecified Status: Acute (5) Atrial fibrillation: Qualifiers: Atrial fibrillation type: unspecified Qualified Code(s): I48.91 - Unspecified atrial fibrillation Code(s): I48.91 - Unspecified atrial fibrillation Status: Acute (6) Type 2 diabetes mellitus with other circulatory complications: Code(s): E11.59 - Type 2 diabetes mellitus with other circulatory complications Status: Acute (7) Mixed hyperlipidemia: Code(s): E78.2 - Mixed hyperlipidemia Status: Acute (8) Essential (primary) hypertension: Code(s): I10 - Essential (primary) hypertension Status: Acute (9) PVD (peripheral vascular disease): Code(s): I73.9 - Peripheral vascular disease, unspecified Status: Acute Plan His syncopal episode was in the setting of hypoglycemia, and likely etiology for his syncope. He has had no chest pain or other cardiac symptoms. Elevated troponins in the setting of syncope, and likely has underlying coronary artery disease, however no evidence of ACS/ongoing ischemia. EKG without ischemic changes. Will obtain a TTE. If TTE without significant abnormality, will have patient follow-up with us in clinic as an outpatient. On [facility] for recent diagnosis of atrial fibrillation. Currently in sinus rhythm. Has not established care with a [employer] Coxsw[employer] yet. Recommend 30-day event monitor on discharge (order placed). Will have patient follow-up with us in clinic as an outpatient. Recent LDL in August was 52. Continue statin. History of Present Illness History of Present Illness Consult date/time: 10/19/22 11:24 Requesting physician: Ailyn Krueger MD Consult reason: Other (Syncope, elevated troponins) Reason For Visit: Syncope,Non-STEMI,Diabetic Hypoglycemia,Anemia Narrative: We are consulted for syncope and elevated troponins. This is a 72-year-old male with a history of diabetes, s/p bilateral BKAs due to complications from his diabetes, hypertension, hyperlipidemia, recently diagnosed atrial fibrillation by PCP now on [facility] who presented to [place] after syncopal episode. Patient states that he woke up yesterday morning, had sat up in bed, and then passed out losing consciousness. He awoke on the floor. Patient reports he was disoriented when he regained consciousness. Patient checked his blood sugar and it was in the 40s. Took 4 glucose tablets, and then called EMS. Patient reports he took his insulin last night as usual. Did not have any food when he took his insulin. His labs do shows hypoglycemia yesterday with a glucose level of 38. Troponins were obtained, and were elevated 0.101 --> 0.104 --> 0.147 --> 1.960. CT Head showed old infarct in the right thalamus and chronic small vessel ischemic disease. No acute findings. EKG showing sinus rhythm, cannot rule out septal infarction of indeterminate age. Patient had an echo done in 09/2022 showing LVEF 65-70%, mildly increased LV wall thickness, mild MR, trace TR, PHTN. Patient denies any chest pain. He states he was feeling in his normal state of health prior to his syncopal episode. No recent chest pain. Review of Systems Review of Systems: 12-point ROS obtained. Negative, unless stated in HPI. [facility] Past Medical History Medical History Essential (primary) hypertension Heart murmur History of CVA (cerebrovascular accident) Mixed hyperlipidemia Type 2 diabetes mellitus with other circulatory complications Surgical History Surgical Histo
[2022-10-19 11:30] LABS: Glucose Point of Care 105 mg/dl (65-105)
[2022-10-19 11:34] LABS: Hemoglobin A1C 4.6 % (<5.7)
[2022-10-19] MEDS: VERAPAMIL HCL ER 240 MG TABLET.ER BY MOUTH ×2 (12:33→20:23)
[2022-10-19] MEDS: OMEGA 3 POLYUNSAT FATTY ACIDS 1 GM CAP PO ×2 (12:33→17:14)
[2022-10-19] MEDS: VALSARTAN 160 MG TABLET 320 MG PO (12:33)
[2022-10-19] MEDS: ATORVASTATIN 20 MG TABLET BY MOUTH (12:33)
[2022-10-19] MEDS: hydroCHLOROthiazide 25 MG TABLET PO (12:34)
[2022-10-19] MEDS: minoxidiL 10 MG TABLET 20 MG BY MOUTH ×2 (12:34→17:14)
[2022-10-19] MEDS: MULTIVITAMINS /C LUTEIN (CENTRUM SILVER) TABLET *BKC 1 TAB PO (12:34)
--- NOTE | 2022-10-19 13:08 | PM.IMPN ---
Progress Note: A&P Assessment and Plan (1) Syncope and collapse: Code(s): R55 - Syncope and collapse Status: Acute Assessment and Plan: [place] syncope related to hypoglycemia. Patient is at high risk for hypoglycemia with A1c 4.6% and qhs insulin dosing. Consider dysrhythmia causing syncope. Elevated Trop probably related to the syncope but consider related to dysrhythmia. He is also having chest pain so could be having underlying ischemia. Vasovagal syncope felt less likely. Monitor on tele. Adjust insulin to prevent hypoglycemia. Plan for outpatient heart monitoring. (2) Elevated troponin: Code(s): R77.8 - Other specified abnormalities of plasma proteins Status: Acute Assessment and Plan: Patient's troponins are level to 0.19. -patient has complaints of chest pain. -Lexiscan November 2021 showing: Limited with study terminated at patient request. There was decreased activity along the inferior wall similar to that seen on the prior study likely related to diaphragmatic attenuation artifact although differential includes ischemia or infarct. -cardiology was consulted from ED. -Echo ordered -Add ASA (3) Anemia: Code(s): D64.9 - Anemia, unspecified Status: Acute Assessment and Plan: Hgb 9.5 on admission and has dropped to 8.3. -no other labs for comparison -check iron studies, etc -monitor (4) Atrial fibrillation: Qualifiers: Atrial fibrillation type: unspecified Qualified Code(s): I48.91 - Unspecified atrial fibrillation Code(s): I48.91 - Unspecified atrial fibrillation Status: Acute Assessment and Plan: -the patient is currently in sinus rhythm. -continue with apixaban (on hold but will resume if HH remains stable) -continue verapamil (5) Type 2 diabetes mellitus with other circulatory complications: Code(s): E11.59 - Type 2 diabetes mellitus with other circulatory complications Status: Acute Assessment and Plan: Hold routine insulin. Since the patient had a hypoglycemic event will decreasing his 75/25. -A1c 4.6. Glucose 38 yesterday. -Accu-Cheks AC and HS with sliding scale insulin hypoglycemic protocol. -resume insulin when glucose improves. 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 Subjective Date/time seen: 10/19/22 13:08 Interval history: 72yo male with DM, PAD and pAFib here for syncopal episode felt related to hypoglycemia Patient sat at the side of the bed and had sudden loss of consciousness. He awoke on the floor. He managed to get to his bedside and take his glucose that ws in the 40's. He took 3 glucose tablets and called EMS. He takes Insulin 75/25 52U in the morning and 52U at bedtime. He has shaking and diaphoresis at night at times. His A1c 4.6. He lives alone. He did have about 30 sec of confusion but no tongue biting or incontinence. He has been having chest pain past several months. Persistnet but not increasing in frequency or severity. Chest marty occurs after eating and in the upper chest lasting 10-30 minutes associated with SOB. Stress test one year ago. Exam Narrative: AF 98.2 144/52 87 16 95% ra Gen - NARD Chest - CTA bilaterally, nml RR CV - RRR S1/S2, 2/6 systolic murmur USB. Tele showing no significant dysrhythmias Abd - Soft, NT/ND, Positive BS Ext - bilateral BKA Neuro - Alert and oriented. Nonfocal exam. Psych - Nml mood and affect Skin - Warm and dry Objective Data Vital Signs Vital Signs: Vit
[2022-10-19] MEDS: PERFLUTREN LIPID MICROSPHERES 1.5 ML VIAL DILUTED TO 10 ML TOTAL VOLUME IV PUSH (13:45)
--- NOTE | 2022-10-19 13:45 | IVDEFINITY ---
Prior to administration of IV Definity the patient was educated on the risks and benefits of the imaging enhancing agent including potential adverse side effects. The patient verbalized understanding. Allergies were verified. No exclusion criteria were identified and at least one of the following inclusion criteria were met: 1) physician request, 2) patient technically difficult to image (per the [place] [employer] guidelines of two or more segments not discernable within the apical view), or 3) questionable left ventricular function. ?
[2022-10-19 14:58] LABS: Hemoglobin 8.6 g/dL (14.0-18.0)
--- NOTE | 2022-10-19 15:32 | PC.NURSE ---
Called Dr. Arreguin with cardiology and reported the most recent Trop of 3.28, she asked if he is symptomatic, I replied with no and she said ok we will continue to monitor.
[2022-10-19 16:23] LABS: Glucose Point of Care 161 mg/dl (65-105)
[2022-10-19] MEDS: TERAZOSIN HCL 5 MG CAPSULE PO (20:23)
[2022-10-19 21:07] LABS: Glucose Point of Care 158 mg/dl (65-105)
[2022-10-20] VITALS (8 sets, daily range): BP systolic 116–137; BP diastolic 41–60; PULSE 60–85; RESP 16–20; TEMP 36.8–37; O2SAT 93–97; BMI 36.2
[2022-10-20 01:06] LABS: IFOB Positive Control Positive; Immunochemical Fecal Occult Bl Positive (N)
[2022-10-20 04:29] LABS: Basophils Percent Auto 0.4 % (0.2-1.2); Eosinophils Absolute Auto 0.4 K/mm3 (0-0.3); Eosinophils Percent Auto 6.8 % (0-4.4); Hematocrit 25.5 % (42.0-52.0); Hemoglobin 8.2 g/dL (14.0-18.0); Immature Granulocyte Absolute 0.02 K/mm3 (0.00-0.031); Immature Granulocyte Percent A 0.4 % (0-0.5); Lymphocytes Absolute Auto 1.66 K/mm3 (0.9-3.2); Lymphocytes Percent Auto 30.5 % (18.3-44.2); Mean Corpuscular HGB Conc 32.2 g/dl (32-36); Mean Corpuscular Hemoglobin 32.8 pg (26-34); Mean Platelet Volume 11.3 fl (7.4-10.4); Monocytes Absolute Auto 0.7 K/mm3 (0.1-0.6); Monocytes Percent Auto 12.7 % (2.6-8.5); Neutrophils Absolute Auto 2.7 K/mm3 (1.3-6.7); Neutrophils Percent Auto 49.2 % (45.5-73.1); Platelet Count Result 142 k/mm3 (150-375); Red Cell Distribution Width 16.4 % (11.5-14.5); White Blood Count 5.4 K/mm3 (4.5-10.0)
[2022-10-20 04:49] LABS: Albumin Level 3.1 g/dL (3.5-5.1); Anion Gap 2 mmol/L (8-16); Blood Urea Nitrogen 22 mg/dL (9-20); Calcium 8.3 mg/dL (8.4-10.2); Carbon Dioxide 28 mmol/L (22-30); Chloride 110 mmol/L (98-107); Estimated CRCL calculation 64 ml/min; Estimated Glomerular Filt Rate 60; Glucose 136 mg/dL (65-110); Magnesium 1.9 mg/dL (1.6-2.3); Phosphorus 3.2 mg/dL (2.5-4.5); Potassium 4.1 mmol/L (3.4-5.0); Sodium 140 mmol/L (137-145)
[2022-10-20 04:53] LABS: Iron 86 ug/dL (49-181)
[2022-10-20 05:03] LABS: Percent Iron Saturation 32 % (20-50)
[2022-10-20 06:01] LABS: Folic Acid > 20.0 ng/mL (2.76->20)
[2022-10-20] MEDS: MULTIVITAMINS /C LUTEIN (CENTRUM SILVER) TABLET *BKC 1 TAB PO (08:42)
[2022-10-20] MEDS: OMEGA 3 POLYUNSAT FATTY ACIDS 1 GM CAP PO (08:42)
[2022-10-20] MEDS: hydroCHLOROthiazide 25 MG TABLET PO (08:44)
[2022-10-20] MEDS: ASPIRIN 81 MG CHEWABLE TABLET PO (08:45)
[2022-10-20] MEDS: ATORVASTATIN 20 MG TABLET BY MOUTH (08:45)
[2022-10-20 09:22] LABS: Glucose Point of Care 176 mg/dl (65-105)
--- NOTE | 2022-10-20 09:35 | PCOTNOTE ---
Attempted to see patient for OT evaluation. Patient is a bilateral BKA and his prosthetics are not here. He is trying to get a hold of his senior apartments to authorize them to let his helper into his apartment to get his prosthetics.
[2022-10-20 12:20] LABS: Glucose Point of Care 146 mg/dl (65-105)
--- NOTE | 2022-10-20 13:13 | PM.PNCARD ---
Progress Note: A&P Assessment and Plan (1) Elevated troponin: Code(s): R77.8 - Other specified abnormalities of plasma proteins Status: Acute (2) Syncope and collapse: Code(s): R55 - Syncope and collapse Status: Acute (3) Diabetic hypoglycemia: Code(s): E11.649 - Type 2 diabetes mellitus with hypoglycemia without coma Status: Acute (4) Anemia: Code(s): D64.9 - Anemia, unspecified Status: Acute (5) Atrial fibrillation: Qualifiers: Atrial fibrillation type: unspecified Qualified Code(s): I48.91 - Unspecified atrial fibrillation Code(s): I48.91 - Unspecified atrial fibrillation Status: Acute (6) Type 2 diabetes mellitus with other circulatory complications: Code(s): E11.59 - Type 2 diabetes mellitus with other circulatory complications Status: Acute (7) Mixed hyperlipidemia: Code(s): E78.2 - Mixed hyperlipidemia Status: Acute (8) Essential (primary) hypertension: Code(s): I10 - Essential (primary) hypertension Status: Acute (9) PVD (peripheral vascular disease): Code(s): I73.9 - Peripheral vascular disease, unspecified Status: Acute Plan Syncopal episode was in the setting of hypoglycemia, and likely etiology for his syncope. He has no chest pain or other cardiac symptoms. Elevated troponins in the setting of syncope, and likely has underlying coronary artery disease given his risk factors, however no evidence of ACS/ongoing ischemia. EKG without ischemic changes. TTE showed LVEF 65-70% with regional wall motion abnormalities, mildly increased LV wall thickness, grade 1 diastolic dysfunction, mild MR, mild TR. Since his troponin did peak at 3.2, he will need an ischemic evaluation at some point, however, will do as an outpatient, especially given his significant anemia with positive stool occult blood test that requires further workup. On Eliquis for recent diagnosis of atrial fibrillation. Currently in sinus rhythm. Has not established care with a [employer] Operator yet. Recommend 30-day event monitor on discharge (order placed). Will have patient follow-up with us in clinic as an outpatient. Recent LDL in August was 52. Continue statin. Significant anemia with Hgb in the 8s. No established baseline Hgb level. Stool occult blood test is positive. Further workup as per Hospitalist. No further cardiac recommendations at this time. Will arrange follow-up with our clinic. Subjective Date/time seen: 10/20/22 13:13 Interval history: Reason for visit: Syncope, elevated troponin HPI: We are consulted for syncope and elevated troponins. This is a 72-year-old male with a history of diabetes, s/p bilateral BKAs due to complications from his diabetes, hypertension, hyperlipidemia, recently diagnosed atrial fibrillation by PCP now on [facility] who presented to [place] after syncopal episode. Patient states that he woke up yesterday morning, had sat up in bed, and then passed out losing consciousness. He awoke on the floor. Patient reports he was disoriented when he regained consciousness. Patient checked his blood sugar and it was in the 40s. Took 4 glucose tablets, and then called EMS. Patient reports he took his insulin last night as usual. Did not have any food when he took his insulin. His labs do shows hypoglycemia yesterday with a glucose level of 38. Troponins were obtained, and were elevated 0.101 --> 0.104 --> 0.147 --> 1.960. CT Head showed old infarct in the right thalamus and chronic small vessel ischemic disease. No acute findings. EKG showing sinus rhythm, cannot rule out septal infarction of indeterminate age. Patient had an echo done in 09/2022 showing LVEF 65-70%, mildly increased LV wall thickness, mild MR, trace TR, PHTN. Patient denies any chest pain. He states he was feeling in his normal state of health prior to his syncopal episode. No recent chest pain. Date of service 10/20: No acute events overnight. P
--- NOTE | 2022-10-20 13:17 | ECG_ITS ---
Measurements Intervals [place] Rate: 72 P: 59 AK: 170 QRS: 58 QRSD: 93 T: 80 QT: 406 QTc: 446 Interpretive Statements SINUS RHYTHM NONSPECIFIC ST AND T WAVE ABNORMALITY COMPARED TO ECG 10/18/2022 15:33:09 NO SIGNIFICANT CHANGES Electronically Signed On 10-20-2022 16:18:16 SURGICAL ASST by Mart Arreguin M.D.
--- NOTE | 2022-10-20 14:26 | PM.DS ---
DS: Admitting Diagnosis Discharge Date 10/20/2022 Admitting Diagnosis Syncope with right hip pain DS: Discharge Diagnosis Discharge Diagnosis (1) Syncope and collapse: Code(s): R55 - Syncope and collapse Status: Acute Assessment and Plan: [place] syncope related to hypoglycemia. Patient is at high risk for hypoglycemia with A1c 4.6% and qhs insulin dosing. Consider dysrhythmia causing syncope. Elevated Trop probably related to the syncope but consider related to dysrhythmia. He is also having chest pain so could be having underlying ischemia. Vasovagal syncope felt less likely. Monitor on tele. Adjust insulin to prevent hypoglycemia. Plan for outpatient heart monitoring. (2) Elevated troponin: Code(s): R77.8 - Other specified abnormalities of plasma proteins Status: Acute Assessment and Plan: Patient's troponins are level to 0.19. -patient has complaints of chest pain. -Lexiscan November 2021 showing: Limited with study terminated at patient request. There was decreased activity along the inferior wall similar to that seen on the prior study likely related to diaphragmatic attenuation artifact although differential includes ischemia or infarct. -cardiology was consulted from ED. -Echo ordered -Add ASA (3) Anemia: Code(s): D64.9 - Anemia, unspecified Status: Acute Assessment and Plan: Hgb 9.5 on admission and has dropped to 8.3. -no other labs for comparison -check iron studies, etc -monitor (4) Atrial fibrillation: Qualifiers: Atrial fibrillation type: unspecified Qualified Code(s): I48.91 - Unspecified atrial fibrillation Code(s): I48.91 - Unspecified atrial fibrillation Status: Acute Assessment and Plan: -the patient is currently in sinus rhythm. -continue with apixaban (on hold but will resume if HH remains stable) -continue verapamil (5) Type 2 diabetes mellitus with other circulatory complications: Code(s): E11.59 - Type 2 diabetes mellitus with other circulatory complications Status: Acute Assessment and Plan: Hold routine insulin. Since the patient had a hypoglycemic event will decreasing his 75/25. -A1c 4.6. Glucose 38 yesterday. -Accu-Cheks AC and HS with sliding scale insulin hypoglycemic protocol. -resume insulin when glucose improves. 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 DS: Summary Hospital Course Hospital Course: 72-year-old male with history of diabetes and [id number] amputations presenting with syncopal episode and hip pain. Cardiology was consulted and thought there was no cardiac etiology to his symptoms. They did recommend a 30 day event monitor at discharge and an echo. Echo was performed showed an EF of 65-70% with grade 1 diastolic dysfunction. No significant valvular abnormalities nor pulmonary hypertension was noted. All symptoms resolved and he was discharged to outpatient follow-up with Cardiology and event monitor. He is also to monitor his sugar closely. Hypoglycemia was noted and may have played a role in his syncopal episode. Therefore, his home insulin was decreased. Time Spent with Patient Time attestation: Total time spent providing and/or coordinating discharge services: Exam Narrative: AF 98.2 144/52 87 16 95% ra Gen - NARD Chest - CTA bilaterally, nml RR CV - RRR S1/S2, 2/6 systolic murmur USB. Tele showing no significant dysrhythmias Abd - Soft, NT/ND, Positive BS Ext - bilateral BKA
--- NOTE | 2022-10-20 15:39 | PC.NURSE ---
Pt to have 30 day holter monitor after discharge. Called Dr. Moore office at [phone] in regards to setting monitor up. Spoke with Joyce who reports the cardiology office will follow up with pt to set monitor up.
== END 2022-10-20 16:28 | disposition home or self-care (01) ==
LOC: ANHED 17:32 → ANHIMU 19:48
PROVIDERS: Internal Medicine; Nurse Practitioner; Admitting Provider Family Medicine; Emergency Provider Emergency Medicine; PCP Internal Medicine; Visit Provider Student in an Organized Health Care Education/Training Program
DX: R55 Syncope and collapse (principal); R77.8 Other specified abnormalities of plasma proteins; D64.9 Anemia, unspecified; I48.91 Unspecified atrial fibrillation; E11.59 Type 2 diabetes mellitus with other circulatory complications; E11.649 Type 2 diabetes mellitus with hypoglycemia without coma; E78.2 Mixed hyperlipidemia; I11.9 Hypertensive heart disease without heart failure; I08.1 Rheumatic disorders of both mitral and tricuspid valves; M25.551 Pain in right hip; I73.9 Peripheral vascular disease, unspecified; R01.1 Cardiac murmur, unspecified; M47.812 Spondylosis without myelopathy or radiculopathy, cervical region; M16.0 Bilateral primary osteoarthritis of hip; I25.2 Old myocardial infarction; R91.8 Other nonspecific abnormal finding of lung field; R90.82 White matter disease, unspecified; Z89.512 Acquired absence of left leg below knee; Z89.511 Acquired absence of right leg below knee; Z66 Do not resuscitate; F10.91 Alcohol use, unspecified, in remission; Z87.891 Personal history of nicotine dependence; Z86.73 Personal history of transient ischemic attack (TIA), and cerebral infarction without residual deficits; Z79.01 Long term (current) use of anticoagulants; Z79.4 Long term (current) use of insulin; Z79.899 Other long term (current) drug therapy; Z82.3 Family history of stroke; Z83.3 Family history of diabetes mellitus
CPT/HCPCS: 36415; 51701; 70450; 71045; 72125; 73502; 80053; 80069; 81003; 82274; 82607; 82728; 82746; 82948; 83036; 83540; 83550; 83735; 84484; 85014; 85018; 85025; 85610; 85730; 93005; 96374; 97165; 99291; A9270; C8929; G0378; J1815; Q9957

== ENCOUNTER 2022-11-05 11:05 | Outpatient (CLI) | payer MEDICARE, SELFPAY ==
[2022-11-05 12:41] LABS: Basophils Percent Auto 0.4 % (0.2-1.2); Eosinophils Absolute Auto 0.4 K/mm3 (0-0.3); Eosinophils Percent Auto 8.9 % (0-4.4); Hematocrit 28.5 % (42.0-52.0); Hemoglobin 9.4 g/dL (14.0-18.0); Immature Granulocyte Absolute 0.02 K/mm3 (0.00-0.031); Immature Granulocyte Percent A 0.4 % (0-0.5); Lymphocytes Absolute Auto 1.08 K/mm3 (0.9-3.2); Lymphocytes Percent Auto 24.2 % (18.3-44.2); Mean Corpuscular Hemoglobin 33.8 pg (26-34); Mean Corpuscular Volume 102.5 fl (80-100); Mean Platelet Volume 12.5 fl (7.4-10.4); Monocytes Absolute Auto 0.5 K/mm3 (0.1-0.6); Monocytes Percent Auto 11.2 % (2.6-8.5); Neutrophils Absolute Auto 2.5 K/mm3 (1.3-6.7); Neutrophils Percent Auto 54.9 % (45.5-73.1); Platelet Count Result 157 k/mm3 (150-375); Red Blood Count 2.78 M/mm3 (4.6-6.20); White Blood Count 4.5 K/mm3 (4.5-10.0)
[2022-11-05 12:52] LABS: Alanine Aminotransferase 30 U/L (6-50); Alkaline Phosphatase 114 U/L (38-126); Anion Gap 6 mmol/L (8-16); Aspartate Amino Transferase 39 U/L (17-59); Bilirubin,Total 0.7 mg/dL (0.2-1.3); Blood Urea Nitrogen 21 mg/dL (9-20); Calcium 8.6 mg/dL (8.4-10.2); Carbon Dioxide 26 mmol/L (22-30); Chloride 105 mmol/L (98-107); Estimated Glomerular Filt Rate > 60; Glucose 137 mg/dL (65-110); Potassium 4.4 mmol/L (3.4-5.0); Sodium 137 mmol/L (137-145)
== END 2022-11-05 11:06 | disposition home or self-care (01) ==
PROVIDERS: PCP Internal Medicine; Visit Provider Internal Medicine
DX: E11.9 Type 2 diabetes mellitus without complications (principal); I48.91 Unspecified atrial fibrillation
CPT/HCPCS: 36415; 80053; 85025

== ENCOUNTER 2023-01-04 14:17 | Outpatient (CLI) | payer MEDICARE, SELFPAY ==
[2023-01-04 15:37] LABS: LDL Cholesterol Direct 51 mg/dL
[2023-01-04 18:47] LABS: Alanine Aminotransferase 33 U/L (6-50); Alkaline Phosphatase 111 U/L (38-126); Anion Gap 8 mmol/L (8-16); Aspartate Amino Transferase 39 U/L (17-59); Blood Urea Nitrogen 43 mg/dL (9-20); Calcium 8.8 mg/dL (8.4-10.2); Carbon Dioxide 25 mmol/L (22-30); Chloride 109 mmol/L (98-107); Cholesterol 109 mg/dL (0-200); Estimated Glomerular Filt Rate 40; Glucose 39 mg/dL (65-110); HDL Direct 42 mg/dL; Potassium 4.1 mmol/L (3.4-5.0); Sodium 142 mmol/L (137-145); Triglycerides 50 mg/dL (<150)
[2023-01-04 19:31] LABS: Hemoglobin A1C 4.5 % (<5.7)
== END 2023-01-04 14:18 | disposition home or self-care (01) ==
PROVIDERS: PCP Family Medicine; Visit Provider Nurse Practitioner
DX: E78.5 Hyperlipidemia, unspecified (principal); E11.9 Type 2 diabetes mellitus without complications
CPT/HCPCS: 36415; 80053; 80061; 83036

== ENCOUNTER 2023-01-21 13:29 | Outpatient (CLI) | payer MEDICARE, SELFPAY ==
[2023-01-21 14:28] LABS: Basophils Percent Auto 0.9 % (0.2-1.2); Eosinophils Absolute Auto 0.2 K/mm3 (0-0.3); Eosinophils Percent Auto 5.8 % (0-4.4); Hematocrit 28.5 % (42.0-52.0); Hemoglobin 9.2 g/dL (14.0-18.0); Immature Granulocyte Absolute 0.01 K/mm3 (0.00-0.031); Immature Granulocyte Percent A 0.3 % (0-0.5); Lymphocytes Absolute Auto 0.91 K/mm3 (0.9-3.2); Lymphocytes Percent Auto 26.5 % (18.3-44.2); Mean Corpuscular HGB Conc 32.3 g/dl (32-36); Mean Corpuscular Hemoglobin 33.9 pg (26-34); Mean Corpuscular Volume 105.2 fl (80-100); Monocytes Absolute Auto 0.5 K/mm3 (0.1-0.6); Monocytes Percent Auto 13.4 % (2.6-8.5); Neutrophils Absolute Auto 1.8 K/mm3 (1.3-6.7); Neutrophils Percent Auto 53.1 % (45.5-73.1); Platelet Count Result 122 k/mm3 (150-375); Red Blood Count 2.71 M/mm3 (4.6-6.20); Red Cell Distribution Width 16.9 % (11.5-14.5); White Blood Count 3.4 K/mm3 (4.5-10.0)
[2023-01-21 14:42] LABS: Iron 111 ug/dL (49-181)
[2023-01-21 14:44] LABS: Anion Gap 8 mmol/L (8-16); Blood Urea Nitrogen 28 mg/dL (9-20); Calcium 8.6 mg/dL (8.4-10.2); Carbon Dioxide 23 mmol/L (22-30); Chloride 107 mmol/L (98-107); Estimated Glomerular Filt Rate 50; Glucose 53 mg/dL (65-110); Phosphorus 3.9 mg/dL (2.5-4.5); Potassium 4.1 mmol/L (3.4-5.0); Sodium 138 mmol/L (137-145)
[2023-01-21 14:54] LABS: Burr Cells 2+ (NORMAL); Percent Iron Saturation 33 % (20-50); Platelet Estimate Decreased (Adequate)
[2023-01-21 14:55] LABS: Anisocytosis 1+ (NORMAL)
[2023-01-21 14:56] LABS: Macrocytosis 1+ (NORMAL); Schistocytes None Seen (NORMAL)
== END 2023-01-21 13:30 | disposition home or self-care (01) ==
PROVIDERS: PCP Family Medicine; Visit Provider Family Medicine
DX: R55 Syncope and collapse (principal); I21.4 Non-ST elevation (NSTEMI) myocardial infarction; E11.649 Type 2 diabetes mellitus with hypoglycemia without coma; D64.9 Anemia, unspecified; I48.91 Unspecified atrial fibrillation; E87.6 Hypokalemia; E11.59 Type 2 diabetes mellitus with other circulatory complications; E78.2 Mixed hyperlipidemia; I73.9 Peripheral vascular disease, unspecified
CPT/HCPCS: 36415; 80069; 82607; 83540; 83550; 85025

== ENCOUNTER 2023-02-22 21:39 | Emergency (ER) | payer MEDICARE, SELFPAY ==
[2023-02-22 21:39] VITALS: BP 127/44; PULSE 83; RESP 16; TEMP 36.6; O2SAT 92
[2023-02-22 22:06] LABS: Glucose Point of Care 35 mg/dl (65-105)
[2023-02-22] MEDS: GLUCOSE ORAL GEL 15 GM OF GLUCSE IN 37.5 GM TUBE PO (22:10)
--- NOTE | 2023-02-22 22:20 | PC.NURSE ---
Patient was given one tube of glucose for low blood sugar of 35. Blood sugar was re-assessed at 45.
[2023-02-22] MEDS: GLUCAGON FOR INJ 1 MG VIAL IM (22:25)
--- NOTE | 2023-02-22 22:27 | PC.NURSE ---
Notified Dr. Lovelace about low blood sugar after tube of glucose given. Dr. Lovelace ordered a glucagon IM injection and give the patient an orange juice.
[2023-02-22] MEDS: DEXTROSE 50% 25 GM/50 ML SYRINGE IV PUSH (22:30)
[2023-02-22 22:44] LABS: Glucose Point of Care 42 mg/dl (65-105)
[2023-02-22 22:51] LABS: Basophils Percent Auto 0.1 % (0.2-1.2); Eosinophils Absolute Auto 0.1 K/mm3 (0-0.3); Eosinophils Percent Auto 1.5 % (0-4.4); Hematocrit 29.7 % (42.0-52.0); Hemoglobin 10.2 g/dL (14.0-18.0); Immature Granulocyte Absolute 0.04 K/mm3 (0.00-0.031); Immature Granulocyte Percent A 0.6 % (0-0.5); Lymphocytes Absolute Auto 0.63 K/mm3 (0.9-3.2); Lymphocytes Percent Auto 8.7 % (18.3-44.2); Mean Corpuscular HGB Conc 34.3 g/dl (32-36); Mean Corpuscular Hemoglobin 33.7 pg (26-34); Mean Platelet Volume 11.3 fl (7.4-10.4); Monocytes Absolute Auto 0.3 K/mm3 (0.1-0.6); Monocytes Percent Auto 4.7 % (2.6-8.5); Neutrophils Absolute Auto 6.1 K/mm3 (1.3-6.7); Neutrophils Percent Auto 84.4 % (45.5-73.1); Platelet Count Result 146 k/mm3 (150-375); Red Blood Count 3.03 M/mm3 (4.6-6.20); Red Cell Distribution Width 15.8 % (11.5-14.5); White Blood Count 7.2 K/mm3 (4.5-10.0)
[2023-02-22 23:08] LABS: Glucose Point of Care 197 mg/dl (65-105)
--- NOTE | 2023-02-22 23:09 | PC.NURSE ---
Per Dr. Lovelace give patient 1L NS bolus.
[2023-02-22] MEDS: SODIUM CHLORIDE 0.9% IV 1,000 ML 999 ML IV CONT (23:12)
[2023-02-22 23:34] LABS: Alanine Aminotransferase 37 U/L (6-50); Albumin Level 4.3 g/dL (3.5-5.1); Alkaline Phosphatase 132 U/L (38-126); Anion Gap 10 mmol/L (8-16); Aspartate Amino Transferase 45 U/L (17-59); Blood Urea Nitrogen 27 mg/dL (9-20); Calcium 8.9 mg/dL (8.4-10.2); Carbon Dioxide 25 mmol/L (22-30); Chloride 105 mmol/L (98-107); Estimated CRCL calculation 52 ml/min; Estimated Glomerular Filt Rate 46; Glucose 58 mg/dL (65-110); Potassium 3.9 mmol/L (3.4-5.0); Sodium 140 mmol/L (137-145)
[2023-02-23] VITALS: BP 108/50; PULSE 93; RESP 15; O2SAT 94
--- NOTE | 2023-03-18 00:48 | ED.GENADULT ---
HPI - General Adult General Chief complaint: Recheck/Abnormal Lab/Rx Stated complaint: low blood sugar Time Seen by Provider: 02/22/23 21:51 History of Present Illness HPI narrative: Patient 73-year-old gentleman who presents the emergency department with chief complaint of hypoglycemia. Patient started doing a bowel prep for a colonoscopy and reports that his blood sugars have been dropping low. The patient reports that he did not cut back his insulin dose and reports that he took his normal doses of insulin even though he was not eating his normal diet. Related Data Home Medications Medication Instructions Recorded Confirmed [id number]-kes-[id number] acid 0.4 1 tablet PO DAILY 08/01/19 03/01/23 mg-lycopene 300 mcg-lutein 250 mcg tablet (Centrum Silver) omega 0-rqk-icr-fish oil 1,000 mg 1 cap PO BID 10/18/22 03/01/23 (120 mg-180 mg) capsule (Fish Oil) insulin lispro protamine-lispro 40 unit subcut BID 03/01/23 03/01/23 100 unit/mL (75-25) subcutaneous susp (Humalog Mix 75-25(U-100)Insuln) Allergies Allergy/AdvReac Type Severity Reaction Status Date / Time vancomycin Allergy Intermediate Rash Verified 03/16/23 13:43 penicillin G Allergy Mild Hives Verified 03/16/23 13:43 DAVE Inhibitors Allergy Unknown Hives Verified 03/16/23 13:43 hydralazine Allergy Unknown Rash Verified 03/16/23 13:43 onion Allergy Unknown Unknown Verified 03/16/23 13:43 Penicillins Allergy Unknown Unknown Verified 03/16/23 13:43 tazobactam Allergy Unknown BETALACTAMASE Verified 03/16/23 13:43 INHIBITORS Review of Systems Review of Systems: A 10 system review of systems was completed on the patient and is negative except for what is stated in the HPI. Nursing and ancillary documentation was reviewed. [facility] Past Medical History Medical History Atrial fibrillation Essential (primary) hypertension ETOH abuse Heart murmur History of CVA (cerebrovascular accident) Mixed hyperlipidemia Non-STEMI (non-ST elevated myocardial infarction) Obesity PVD (peripheral vascular disease) Type 2 diabetes mellitus with other circulatory complications Surgical History Surgical History Amputated left leg Amputated right leg H/O bursectomy H/O cataract extraction H/O hernia repair History of eye surgery Family History Family History Father Cerebrovascular accident Mother Cerebrovascular accident Sibling Family history of diabetes mellitus in first degree relative Other Diabetes mellitus Social History Social History Social History: The patient lives alone. He is single and has no children. He is retired. He is a former smoker. He used to smoke cigars. Code status DNR Smoking packs per day: 0.25 Smoking cigarettes per day: 5.0 Years smoked: 30 Smoking pack-years: 7.50 Smoking status: Former smoker Tobacco type: cigars Second hand tobacco smoke exposure: No Smoking end date: 11/13/93 Alcohol intake: never Drinks per week: 42 Substance use: never Substance use type: does not use Lack of Transportation: YES Lack of Food: Sometimes True Current Housing: I Have Housing Concerned About Future Housing: YES Difficulty Paying Gas/Electric Bills: No Difficulty Paying for Meds: No Currently Unemployed: No Education: Associate Degree Difficulty w/ Childcare or Family Care: No Living arrangements: alone Spiritual care concerns: No Exam Narrative: GENERAL: Well-appearing, well-nourished, and in no acute distress. HEAD: Normocephalic, atraumatic. EYES: PERRLA and EOMI. ENT: Nares clear, no rhinorrhea or epistaxis. Mucous membranes moist. NECK: Supple. CHEST: Clear to auscultation. No respiratory distress. HEART: Regular rat
== END 2023-02-23 02:00 | disposition home or self-care (01) ==
PROVIDERS: Emergency Provider Emergency Medicine; PCP Family Medicine
DX: E11.649 Type 2 diabetes mellitus with hypoglycemia without coma (principal); I48.91 Unspecified atrial fibrillation; E11.51 Type 2 diabetes mellitus with diabetic peripheral angiopathy without gangrene; I73.9 Peripheral vascular disease, unspecified; I10 Essential (primary) hypertension; E78.2 Mixed hyperlipidemia; I25.2 Old myocardial infarction; E66.9 Obesity, unspecified; Z68.38 Body mass index [BMI] 38.0-38.9, adult; Z86.73 Personal history of transient ischemic attack (TIA), and cerebral infarction without residual deficits; Z87.891 Personal history of nicotine dependence; Z89.512 Acquired absence of left leg below knee; Z89.511 Acquired absence of right leg below knee; Z98.49 Cataract extraction status, unspecified eye; Z66 Do not resuscitate; Z79.4 Long term (current) use of insulin
CPT/HCPCS: 36415; 80053; 82948; 85025; 96361; 96374; 99284; A9270; J1610; J7030

== ENCOUNTER 2023-03-31 13:54 | Inpatient (IN) | payer MEDICARE, MEDICAID, SELFPAY ==
[2023-03-31] VITALS (10 sets, daily range): BP systolic 135–154; BP diastolic 50–83; PULSE 94–110; RESP 18–24; TEMP 37.2–37.9; O2SAT 91–98; BMI 32.1
--- NOTE | ~2023-03-31 | XR_ITS ---
EXAMINATION: XR chest 1V portable Exam Date/Time: 03/31/2023 22:45 CDT HISTORY: fever Comparison: 10/18/2022. RESULT: Lines, tubes, and devices: None. Lungs and pleura: Segmental/lobar left mid and lower lung consolidation with suggestion of central c avitation. Cardiomediastinal silhouette: Stable. Other: No acute osseous or upper abdominal finding. IMPRESSION: Left lower lung airspace disease may represent necrotic pneumonia, or other cavitary lesion. Consider CT of the chest with contrast for further evaluation. Reviewed, dictated and finalized at location K. IMPRESSION: Left lower lung airspace disease may represent necrotic pneumonia, or other cav itary lesion. Consider CT of the chest with contrast for further evaluation.
--- NOTE | ~2023-03-31 | CT_ITS ---
EXAMINATION: CT diagnostic chest wo con DATE: 04/01/2023 17:49 INDICATION: LLL necrotic lesion TECHNIQUE: Computed tomography (CT) of the chest was performed with 100 mL Omnipaque-350 intravenous contrast. Automated exposure control and iterative reconstruction technique were employed. The dose-l ength product was 669.92 mGy-cm. COMPARISON: X-ray chest 03/31/2023. FINDINGS: CHEST: Thoracic aorta: No significant dilation or calcification. Lung parenchyma and airways: Acinar, centrilobular opacities and focal areas of subsegmental consolid ation in the left lower lobe with interlobular septal thickening. Similar but less widespread centril obular nodular opacities in the central and dependent right upper lobe, with interlobular septal thic kening. No definite airway debris. Calcified right upper lobe granuloma. Bibasilar scar/atelectasis. Mild right-sided interlobular septal thickening. Thoracic inlet, axillae and chest wall: No thyroid or soft tissue mass. No axillary lymphadenopathy. Mediastinum: No mass or lymphadenopathy. Heart and pericardium: Borderline cardiomegaly. Trace pericardial fluid. Aortic and mitral calcificat ions. Coronary artery calcifications: Moderate. Pleura: No effusion or mass. Upper abdomen: Uncomplicated but incompletely visualized bowel and mesenteric fat containing ventral upper abdominal hernia. Cholelithiasis, without gallbladder inflammation. Thoracic bones: No acute osseous finding in the chest. IMPRESSION: Left lung opacities may represent aspiration pneumonia, based on distribution. Multifocal pneumonia, infectious airways disease, and asymmetric alveolar edema could appear similarly. No necrotic lesion detected, prior radiograph finding was artifactual. Mild bilateral interstitial edema. Reviewed, dictated and finalized at location K.
--- NOTE | ~2023-03-31 | CT_ITS ---
EXAMINATION: CT brain wo con DATE: 04/01/2023 17:45 INDICATION: AMS . TECHNIQUE: Computed tomography (CT) of the head was performed without intravenous contrast. The mA wa s adjusted according to patient size. Iterative reconstruction technique was employed. The dose-lengt h product was 681.00 mGy-cm. COMPARISON: 10/18/2022. FINDINGS: No acute intracranial hemorrhage or extra-axial fluid collection. No hydrocephalus, mass, or herniation. No acute ischemic infarct. Unremarkable dural venous sinus attenuation. No acute osseous abnormality. The aerated spaces are clear. Moderate atrophy and chronic white matter change. Atherosclerotic intracranial calcification. Old rig ht thalamic lacunar infarct. Right lens replacement. IMPRESSION: No acute intracranial process. Reviewed, dictated and finalized at location K.
--- NOTE | ~2023-03-31 | XR_ITS ---
EXAM: XR shoulder LT min 2V DATE: 03/31/2023 23:03 HISTORY: left shoulder pain . COMPARISON: X-ray chest, same date. FINDINGS: Normal mineralization. No fracture or dislocation. No lytic or blastic lesion. Moderate os teoarthritic changes in the AC joint and glenohumeral joint. Superior humeral head migration. No eros ion or periosteal change. Left upper lung calcified granuloma. Left lung airspace disease better seen in the concurrent x-ray chest. IMPRESSION: Polyarticular left shoulder osteoarthritis. Likely rotator cuff pathology. No acute osseo us finding in the left shoulder. Reviewed, dictated and finalized at location K. IMPRESSION: Polyarticular left shoulder osteoarthritis. Likely rotator cuff pat hology. No acute osseous finding in the left shoulder.
--- NOTE | ~2023-03-31 | XR_ITS ---
XR chest 2V 04/04/2023 09:09 Indication: Pneumonia Procedure: 2 view chest Comparison: Comparison to multiple prior studies sequentially, with oldest reviewed study dated 10/22. Findings: Borderline heart size. There is airspace disease of the left mid and lower lung. Calcified granuloma left upper thorax. No pleural effusion. No pneumothorax. No acute osseous abnormality. Impression: 1: Persistent airspace disease of the left mid and lower lung, consistent with pneumonia. Reviewed, dictated and finalized at location A. Impression: 1: Persistent airspace disease of the left mid and lower lung, consistent with pneumonia.
[2023-03-31 14:10] LABS: Glucose Point of Care 58 mg/dl (65-105)
[2023-03-31 14:38] LABS: Hematocrit 33.3 % (42.0-52.0); Mean Corpuscular Hemoglobin 33.2 pg (26-34); Mean Corpuscular Volume 100.6 fl (80-100); Mean Platelet Volume 10.6 fl (7.4-10.4); Platelet Count Result 175 k/mm3 (150-375); Red Blood Count 3.31 M/mm3 (4.6-6.20); Red Cell Distribution Width 17.4 % (11.5-14.5); White Blood Count 23.6 K/mm3 (4.5-10.0)
[2023-03-31 14:47] LABS: Anion Gap 11 mmol/L (8-16); Blood Urea Nitrogen 20 mg/dL (9-20); Calcium 8.9 mg/dL (8.4-10.2); Carbon Dioxide 25 mmol/L (22-30); Chloride 109 mmol/L (98-107); Estimated CRCL calculation 60 ml/min; Estimated Glomerular Filt Rate 59; Glucose 61 mg/dL (65-110); Potassium 4.1 mmol/L (3.4-5.0); Sodium 145 mmol/L (137-145)
[2023-03-31 15:03] LABS: Anisocytosis 1+ (NORMAL); Band Neutrophils Percent 15 % (0-6); Hypochromasia 1+ (NORMAL); Lymphocytes Absolute Manual 0.94 K/mm3 (1.1-4.5); Neutrophils Absolute Manual 22.65 K/mm3 (1.3-6.7); Neutrophils Percent Manual 81 % (46-73); Platelet Estimate Adequate (Adequate); Schistocytes None Seen (NORMAL); Total Cells Counted 100
--- NOTE | 2023-03-31 15:28 | ED.RECABL ---
HPI - Recheck/Abnormal Lab/Rx General Chief Complaint: Recheck/Abnormal Lab/Rx Stated Complaint: AMS BG 30 Time Seen by Provider: 03/31/23 14:03 History of Present Illness HPI narrative: 73-year-old male with history of diabetes, on high-dose insulin, with multiple episodes of hypoglycemia at home, presents with hypoglycemia and altered mental status, his brother had called him yesterday and could not get through to him, and his good friend went to see him today and saw that he was unresponsive and called EMS. They administered glucagon to him. Related Data Home Medications Medication Instructions Recorded Confirmed xjjyihxb-sca-mchyc acid 0.4 1 tablet PO DAILY 08/01/19 03/01/23 mg-lycopene 300 mcg-lutein 250 mcg tablet (Centrum Silver) omega 9-gzi-jte-fish oil 1,000 mg 1 cap PO BID 10/18/22 03/01/23 (120 mg-180 mg) capsule (Fish Oil) insulin lispro protamine-lispro 45 unit subcut BID 03/01/23 03/01/23 100 unit/mL (75-25) subcutaneous susp (Humalog Mix 75-25(U-100)Insuln) Allergies Allergy/AdvReac Type Severity Reaction Status Date / Time vancomycin Allergy Intermediate Rash Verified 03/31/23 14:08 penicillin G Allergy Mild Hives Verified 03/31/23 14:08 DAVE Inhibitors Allergy Unknown Hives Verified 03/31/23 14:08 hydralazine Allergy Unknown Rash Verified 03/31/23 14:08 onion Allergy Unknown Unknown Verified 03/31/23 14:08 Penicillins Allergy Unknown Unknown Verified 03/31/23 14:08 tazobactam Allergy Unknown BETALACTAMASE Verified 03/31/23 14:08 INHIBITORS Review of Systems Review of Systems: Cannot obtain as patient minimally responsive [facility] Past Medical History Medical History Atrial fibrillation Essential (primary) hypertension ETOH abuse Heart murmur History of CVA (cerebrovascular accident) Mixed hyperlipidemia Non-STEMI (non-ST elevated myocardial infarction) Obesity PVD (peripheral vascular disease) Type 2 diabetes mellitus with other circulatory complications Surgical History Surgical History Amputated left leg Amputated right leg H/O bursectomy H/O cataract extraction H/O hernia repair History of eye surgery Family History Family History Father Cerebrovascular accident Mother Cerebrovascular accident Sibling Family history of diabetes mellitus in first degree relative Other Diabetes mellitus Social History Social History Social History: The patient lives alone. He is single and has no children. He is retired. He is a former smoker. He used to smoke cigars. Code status DNR Smoking packs per day: 0.25 Smoking cigarettes per day: 5.0 Years smoked: 30 Smoking pack-years: 7.50 Smoking status: Former smoker Tobacco type: cigars Second hand tobacco smoke exposure: No Smoking end date: 11/13/93 Alcohol intake: never Drinks per week: 42 Substance use: never Substance use type: does not use Lack of Transportation: YES Lack of Food: Sometimes True Current Housing: I Have Housing Concerned About Future Housing: YES Difficulty Paying Gas/Electric Bills: No Difficulty Paying for Meds: No Currently Unemployed: No Education: Associate Degree Difficulty w/ Childcare or Family Care: No Living arrangements: alone Spiritual care concerns: No Exam Narrative: EXAMINATION OF ORGAN SYSTEMS/BODY AREAS: Constitutional: Vital signs per nursing GENERAL: Sleepy but opens eyes HEAD: Normal with no signs of head trauma. EYES: EOMI, conjunctiva normal ENT: Hearing grossly intact LUNGS: Nonlabored breathing. HEART: [Regular rate and rhythm] ABD: [Soft], [nontender to palpation] EXT: Bilateral BKA SKIN: [No rashes or lesions.] NEURO: [Sleepy but will open eyes. No gross
[2023-03-31 15:38] LABS: Glucose Point of Care 29 mg/dl (65-105)
[2023-03-31 15:38] LABS: Glucose Point of Care 29 mg/dl (65-105)
[2023-03-31] MEDS: DEXTROSE 50% 25 GM/50 ML SYRINGE IV PUSH (15:44)
[2023-03-31] MEDS: DEXTROSE 5% 1,000 ML 1,000 ML 100 ML IVPB (16:04)
[2023-03-31 16:32] LABS: Glucose Point of Care 94 mg/dl (65-105)
--- NOTE | 2023-03-31 17:22 | PM.IMHP ---
H&P: HPI History of Present Illness Date/Time: 03/31/23 17:30 Chief Complaint: Altered mental status, hypoglycemia. Narrative: This is a pleasant 73-year-old male with insulin dependent type 2 diabetes mellitus, paroxysmal atrial fibrillation on anticoagulation, hypertension, hyperlipidemia, and gastroesophageal reflux disease who presented to the emergency department via EMS from home for evaluation after he was found with altered mental status and a glucose of 30. The patient provides the following history and his friend Lisset provides additional information, with the patient's permission. The patient's brother phoned him yesterday and this morning with no answer and his friend Lisset was sent to check on him. She found the patient in bed and minimally responsive. On EMS arrival he was hypoglycemic with a glucose in the 30s and he was given glucagon and dextrose with improvement. The patient reports that [facility] dropped to the ground on his shoulders and he endorses pain in the left anterior shoulder forward flexion. He denies other injuries in the fall and also denies hitting his head. While in the ED he continued to be hypoglycemic despite the aforementioned treatments and he has been started on a D10 drip. With further questioning the patient reports that he has had issues with low sugars for several months and he had his insulin dose decreased from 52 units b.i.d. to 40 units b.i.d. a couple of months ago and despite this he continues to have issues with lows. His most recent hemoglobin A1c was 4.5%. The patient tells me that over the past 1 and half years he has lost about 40 lb and has made lifestyle and diet changes. He is concerned that he is on too much insulin. At the time my evaluation he complains of chills and with further questioning he reports having mild sore throat and productive cough with chills the last several days. He has no known sick contacts. He denies fever and subjective fever. No headache or neck ache. Appetite has been fair. He denies nausea, vomiting, diarrhea, and dysuria. Review of Systems Review of Systems: Twelve systems were reviewed. Patient reports daytime somnolence and heavy snoring. [facility] Past Medical History Medical History Anemia Cerebrovascular accident No residual symptoms. Chronic anticoagulation Essential (primary) hypertension Gastroesophageal reflux disease Heart murmur Insulin dependent type 2 diabetes mellitus Mixed hyperlipidemia Non-STEMI (non-ST elevated myocardial infarction) Obesity Paroxysmal atrial fibrillation Peripheral vascular disease Surgical History Surgical History (Updated 03/31/23 @ 22:57 by Halley Carvajal PA-C) History of below-knee amputation of both lower extremities History of cataract extraction History of eye surgery History of hernia repair Family History Family History Father Cerebrovascular accident Mother Cerebrovascular accident Sibling Family history of diabetes mellitus in first degree relative Other Diabetes mellitus Social History Social History (Updated 03/31/23 @ 22:58 by Halley Carvajal PA-C) Social History: Healthcare power of hedis review nurse: Drakepoly Christineadan, brother. Code status: DNR. Smoking packs per day: 0.25 Smoking cigarettes per day: 5.0 Years smoked: 30 Smoking pack-years: 7.50 Smoking status: Former smoker Second hand tobacco smoke exposure: No Alcohol intake: former Drinks per week: 42 Substance use: never Substance use type: does not use Lack of Transportation: No Lack of Food: Never True Current Housing: I Have Housing Concerned About Future Housing: No Difficulty Paying Gas/Electric Bills: No Difficulty Paying for Meds: No Currently Unemployed: No Education: Associate Degree Difficulty w/ Childcare or
[2023-03-31 17:57] LABS: Glucose Point of Care 109 mg/dl (65-105)
--- NOTE | 2023-03-31 18:20 | ADMGEN ---
This patient, Eric Junior, was admitted to IMU Room 202-. Patient/family oriented to hospital policies and general routines including ID bracelet, bed and alarms, visiting hours, pain management, procedures, bathroom and other care routines, personal items, smoking policy, room service/diet, and visiting hours. Information on how to activate the Rapid Response Team has been discussed. Patient/Family are encouraged to report perceived risks to care and to ask questions if they do not understand what they are told or what they should do.
[2023-03-31 18:50] LABS: Glucose Point of Care 114 mg/dl (65-105)
[2023-03-31 20:48] LABS: Glucose Point of Care 137 mg/dl (65-105)
[2023-03-31 21:09] LABS: Glucose Point of Care 118 mg/dl (65-105)
[2023-03-31 22:33] LABS: Appearance Urine Clear (Clear); Bacteria Urine None Seen /hpf; Bilirubin Urine Negative (Negative); Blood Urine Negative (Negative); Color Urine Yellow (Yellow); Glucose Urine UA Negative (Negative); Ketones Urine Trace mg/dL (Negative); Leukocyte Esterase Ur Negative LEU/UL (Negative); Need Manual Microscopic Reviewed; Nitrate Urine Negative (Negative); Protein Urine Trace mg/dL (Negative); RBC Urine 0-2 /hpf (0-2); Squamous Epithelial Cell Urine None seen /hpf (Few); Urobilinogen Urine 0.2 mg/dL (<2.0); WBC Urine 0-5 /hpf
[2023-03-31 22:34] LABS: Add Urine Microscopic? YES
[2023-03-31 23:51] LABS: Glucose Point of Care 112 mg/dl (65-105)
[2023-04-01] VITALS (14 sets, daily range): BP systolic 117–137; BP diastolic 42–79; PULSE 64–101; RESP 16–40; TEMP 36.2–37.5; O2SAT 93–99; BMI 32.6
[2023-04-01 00:19] LABS: Erythrocyte Sedimentation Rate 32 mm/hr (0-20)
[2023-04-01] MEDS: VERAPAMIL HCL ER 240 MG TABLET.ER BY MOUTH ×3 (00:24→20:20)
[2023-04-01] MEDS: OMEGA 3 POLYUNSAT FATTY ACIDS 1 GM CAP PO ×3 (00:24→20:20)
[2023-04-01] MEDS: APIXABAN 5 MG TABLET PO ×3 (00:24→20:21)
[2023-04-01] MEDS: TERAZOSIN HCL 5 MG CAPSULE PO ×2 (00:25→20:21)
[2023-04-01] MEDS: minoxidiL 10 MG TABLET 20 MG BY MOUTH ×3 (00:25→20:21)
[2023-04-01 06:42] LABS: Glucose Point of Care 122 mg/dl (65-105)
[2023-04-01 06:42] LABS: Glucose Point of Care 83 mg/dl (65-105)
[2023-04-01 06:43] LABS: Glucose Point of Care 106 mg/dl (65-105)
[2023-04-01 06:58] LABS: Glucose Point of Care 106 mg/dl (65-105)
[2023-04-01 07:28] LABS: Procalcitonin 1.8 ng/mL
[2023-04-01 07:29] LABS: Hemoglobin A1C 4.4 % (<5.7)
--- NOTE | 2023-04-01 07:48 | PC.NURSE ---
Paper documentation exists on this patient due to [employer] [facility] downtime on 04/01/23 from 0100 to [0700] .
[2023-04-01 08:07] LABS: Glucose Point of Care 131 mg/dl (65-105)
[2023-04-01 08:35] LABS: Hematocrit 25.5 % (42.0-52.0); Hemoglobin 8.5 g/dL (14.0-18.0); Mean Corpuscular HGB Conc 33.3 g/dl (32-36); Mean Corpuscular Hemoglobin 33.6 pg (26-34); Mean Corpuscular Volume 100.8 fl (80-100); Mean Platelet Volume 10.5 fl (7.4-10.4); Platelet Count Result 135 k/mm3 (150-375); Red Blood Count 2.53 M/mm3 (4.6-6.20); Red Cell Distribution Width 17.7 % (11.5-14.5); White Blood Count 16.4 K/mm3 (4.5-10.0)
[2023-04-01] MEDS: ATORVASTATIN 20 MG TABLET BY MOUTH (08:45)
[2023-04-01] MEDS: MULTIVITAMINS /C LUTEIN (CENTRUM SILVER) TABLET *BKC 1 TAB PO (08:47)
[2023-04-01 08:53] LABS: Alanine Aminotransferase 30 U/L (6-50); Albumin Level 3.2 g/dL (3.5-5.1); Alkaline Phosphatase 109 U/L (38-126); Anion Gap 6 mmol/L (8-16); Aspartate Amino Transferase 51 U/L (17-59); Bilirubin,Total 1.2 mg/dL (0.2-1.3); Blood Urea Nitrogen 19 mg/dL (9-20); Calcium 8.1 mg/dL (8.4-10.2); Carbon Dioxide 26 mmol/L (22-30); Chloride 104 mmol/L (98-107); Estimated CRCL calculation 55 ml/min; Estimated Glomerular Filt Rate 54; Glucose 114 mg/dL (65-110); Magnesium 1.9 mg/dL (1.6-2.3); Potassium 3.9 mmol/L (3.4-5.0); Sodium 136 mmol/L (137-145)
[2023-04-01 09:03] LABS: Glucose Point of Care 122 mg/dl (65-105)
[2023-04-01 10:24] LABS: Glucose Point of Care 118 mg/dl (65-105)
--- NOTE | 2023-04-01 11:00 | PCCCNOTE ---
On 04/01/23, the student, [Cora Arana], provided care and completed [facility] documentation on this patient. I have reviewed the student's documentation and agree with the findings.
[2023-04-01 11:06] LABS: Glucose Point of Care 136 mg/dl (65-105)
[2023-04-01 11:57] LABS: Glucose Point of Care 148 mg/dl (65-105)
[2023-04-01 13:12] LABS: Glucose Point of Care 146 mg/dl (65-105)
[2023-04-01 13:24] LABS: Strep Group A RT-PCR NOT DETECTED (Negative)
[2023-04-01 13:35] LABS: Influenza A QL RT-PCR Negative (Negative); Influenza B QL RT-PCR Negative (Negative); SARS-CoV-2 RNA PCR Negative (Negative)
[2023-04-01 14:08] LABS: Glucose Point of Care 170 mg/dl (65-105)
[2023-04-01] MEDS: levoFLOXacin 750 MG/D5W 150 ML 750 MG/150 ML BAG 100 MG IVPB (14:15)
--- NOTE | 2023-04-01 14:51 | PM.IMPN ---
Progress Note: A&P Assessment and Plan (1) Unresponsive episode: Code(s): R40.4 - Transient alteration of awareness Status: Acute Assessment and Plan: The patient presented to the emergency department via EMS from home for evaluation after he was found unresponsive. [place] related to hypoglycemia. Symptoms improved. Follow. Check CT brain. (2) Hypoglycemia: Code(s): E16.2 - Hypoglycemia, unspecified Status: Acute Assessment and Plan: Glucose on EMS arrival was 30 and he received dextrose and glucagon and despite appropriate treatment in the ED he remains hypoglycemic. he was started on D10 drip with frequent Accu-Cheks. His insulin was held and should be resumed at a much lower dose if at all. His A1c 4.4%. He was educated about not taking 75/25 at bedtime. Wean off D10 as glucose levels tolerate. (3) Sepsis: Code(s): A41.9 - Sepsis, unspecified organism Status: Acute Assessment and Plan: Present on admission with fever, leukocytosis, elevated PCT, bandemia and tachycardia related to PNA. Could also be contributing to his low glucose values and altered mental status. WBC better. BCx NGTD. Check sputum. (4) Pneumonia: Code(s): J18.9 - Pneumonia, unspecified organism Status: Acute Assessment and Plan: Chest x-ray shows left lower lobe airspace disease which may represent chronic pneumonia or other cavitary lesions. WBC 23K and with 15% bands. Blood cultures collected and are negative to date. Consider anaerobic infection with his poor dentition. Also cover for Staph. He was started on Levaquin. Will check CT of the chest. Check sputum culture. Add MRSA coverage. (5) Left shoulder pain: Code(s): M25.512 - Pain in left shoulder Status: Acute Assessment and Plan: He was complaining of left shoulder pain following a fall. The patient reports that he was dropped to the ground on his left shoulder and upper back. He denies other injuries in the fall and also denies hitting his head. Left shoulder xray showing osteoarthritis and likely rotator cuff pathology. No fracture. Follow. (6) Bandemia: Code(s): D72.825 - Bandemia Status: Acute Assessment and Plan: Related to CXR findings. As above. 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 The patient's blood glucose was reviewed on 04/01 Glucose better Continue AccuCheks covering with sliding scale. Hypoglycemia protocol available as needed. Medications on hold. (8) Paroxysmal atrial fibrillation: Code(s): I48.0 - Paroxysmal atrial fibrillation Status: Acute Assessment and Plan: Patient has a history of paroxysmal atrial fibrillation. He is on telemetry maintaining normal sinus rhythm. Will continue verapamil. Continue Eliquis. (9) Essential (primary) hypertension: Code(s): I10 - Essential (primary) hypertension Status: Acute Assessment and Plan: Patient's blood pressure was reviewed on 04/01 Blood pressure remains well controlled. Will continue to monitor (10) Suspected sleep apnea: Code(s): R29.818 - Other symptoms and signs involving the nervous system Status: Acute Assessment and Plan: Apnea link ordered given suspicion for his ARI. AHI was 21. RI was 21. He spent 106 minutes with O2 saturation less than 88%. Patient is agreeable to try noninvasive ventilation. Will check ABG. Start auto BiPAP. (11) Anemia: Code(s): D64.9 - Anemia, unspecified Status: Acute Assessment and Plan: hgb in October was 8-9 range. Hgb better at 10 in February and 11.2 on admission. Hgb has dropped to 8.5. He is on IV fluids. Iron studies normal in January. B12 and folate levels normal as well. Will follow for now
[2023-04-01 15:15] LABS: Glucose Point of Care 155 mg/dl (65-105)
[2023-04-01 15:47] LABS: PCO2 ABG 36.8 mmHg (35.0-45.0)
[2023-04-01 15:48] LABS: Base Excess ABG 1.1 mEq/l (+/-2.0); PO2 ABG 47.8 mmHg (80.0-100.0)
[2023-04-01 15:49] LABS: Alveolar/Arterial O2 Gradient 57.9 mmHg; Fractional Inspired Oxygen 21 %; Modified Allen's Test Pass; Oxygen Content ABG 11.2 %vol (16.0-22.0); Oxygen Saturation ABG 85.7 % (95.0-100.0); Oxyhemoglobin 83.5 % THb (90.0-100.0); PO2 FiO2 Ratio Arterial Blood 2.28 %; Site Drawn RIGHT RADIAL; Total Hemoglobin 9.5 g/dL (12.0-18.0)
[2023-04-01 15:50] LABS: Device ROOM AIR
[2023-04-01] MEDS: metroNIDAZOLE 500 MG/ISO 100ML 500 MG/100 ML BAG 100 MG IVPB ×2 (16:00→21:39)
[2023-04-01 16:19] LABS: Glucose Point of Care 150 mg/dl (65-105)
[2023-04-01 17:32] LABS: Glucose Point of Care 163 mg/dl (65-105)
[2023-04-01 18:28] LABS: Glucose Point of Care 146 mg/dl (65-105)
[2023-04-01] MEDS: DOXYCYCLINE 100 MG/NS 100 ML 100 MG/100 ML BAG IVPB (18:56)
[2023-04-01 19:02] LABS: Glucose Point of Care 139 mg/dl (65-105)
[2023-04-01 20:08] LABS: Glucose Point of Care 127 mg/dl (65-105)
[2023-04-01] MEDS: ACETAMINOPHEN 325 MG TABLET 650 MG PO (20:20)
[2023-04-01 21:11] LABS: Glucose Point of Care 137 mg/dl (65-105)
[2023-04-01 22:40] LABS: Glucose Point of Care 138 mg/dl (65-105)
[2023-04-02] VITALS (12 sets, daily range): BP systolic 119–144; BP diastolic 43–60; PULSE 63–79; RESP 20–22; TEMP 36.1–37.1; O2SAT 93–98
[2023-04-02] MEDS: DEXTROSE 5% 1,000 ML 1,000 ML 100 ML IVPB (01:04)
[2023-04-02 02:00] LABS: Glucose Point of Care 139 mg/dl (65-105)
[2023-04-02] MEDS: DOXYCYCLINE 100 MG/NS 100 ML 100 MG/100 ML BAG IVPB ×2 (04:00→16:06)
[2023-04-02 04:58] LABS: Basophils Percent Auto 0.3 % (0.2-1.2); Eosinophils Absolute Auto 0.5 K/mm3 (0-0.3); Eosinophils Percent Auto 4.8 % (0-4.4); Hematocrit 24.8 % (42.0-52.0); Hemoglobin 8.2 g/dL (14.0-18.0); Immature Granulocyte Absolute 0.07 K/mm3 (0.00-0.031); Immature Granulocyte Percent A 0.6 % (0-0.5); Lymphocytes Absolute Auto 1.25 K/mm3 (0.9-3.2); Lymphocytes Percent Auto 11.4 % (18.3-44.2); Mean Corpuscular HGB Conc 33.1 g/dl (32-36); Mean Corpuscular Hemoglobin 33.6 pg (26-34); Mean Corpuscular Volume 101.6 fl (80-100); Mean Platelet Volume 11.6 fl (7.4-10.4); Monocytes Absolute Auto 1.1 K/mm3 (0.1-0.6); Monocytes Percent Auto 10.3 % (2.6-8.5); Neutrophils Percent Auto 72.6 % (45.5-73.1); Platelet Count Result 134 k/mm3 (150-375); Red Blood Count 2.44 M/mm3 (4.6-6.20); Red Cell Distribution Width 17.4 % (11.5-14.5)
[2023-04-02 05:10] LABS: Alanine Aminotransferase 31 U/L (6-50); Alkaline Phosphatase 114 U/L (38-126); Anion Gap 4 mmol/L (8-16); Aspartate Amino Transferase 42 U/L (17-59); Bilirubin,Total 1.3 mg/dL (0.2-1.3); Blood Urea Nitrogen 20 mg/dL (9-20); CRP 8.5 mg/dL (<1.0); Calcium 7.9 mg/dL (8.4-10.2); Carbon Dioxide 27 mmol/L (22-30); Chloride 104 mmol/L (98-107); Estimated CRCL calculation 55 ml/min; Estimated Glomerular Filt Rate 54; Glucose 134 mg/dL (65-110); Sodium 135 mmol/L (137-145)
[2023-04-02] MEDS: metroNIDAZOLE 500 MG/ISO 100ML 500 MG/100 ML BAG 100 MG IVPB ×3 (05:22→20:48)
[2023-04-02 08:25] LABS: Glucose Point of Care 148 mg/dl (65-105)
[2023-04-02] MEDS: OMEGA 3 POLYUNSAT FATTY ACIDS 1 GM CAP PO ×2 (08:57→20:36)
[2023-04-02] MEDS: minoxidiL 10 MG TABLET 20 MG BY MOUTH ×2 (08:58→20:37)
[2023-04-02] MEDS: APIXABAN 5 MG TABLET PO ×2 (08:58→20:37)
[2023-04-02] MEDS: MULTIVITAMINS /C LUTEIN (CENTRUM SILVER) TABLET *BKC 1 TAB PO (08:58)
[2023-04-02] MEDS: ATORVASTATIN 20 MG TABLET BY MOUTH (08:58)
[2023-04-02] MEDS: VERAPAMIL HCL ER 240 MG TABLET.ER BY MOUTH ×2 (08:59→20:37)
--- NOTE | 2023-04-02 10:04 | PM.IMPN ---
Progress Note: A&P Assessment and Plan (1) Unresponsive episode: Code(s): R40.4 - Transient alteration of awareness Status: Acute Assessment and Plan: The patient presented to the emergency department via EMS from home for evaluation after he was found unresponsive. CT brain showing no acute findings. [place] related to hypoglycemia. Symptoms improved. Follow. (2) Hypoglycemia: Code(s): E16.2 - Hypoglycemia, unspecified Status: Acute Assessment and Plan: Glucose on EMS arrival was 30 and he received dextrose and glucagon and despite appropriate treatment in the ED he remains hypoglycemic. he was started on dextrose drip with frequent Accu-Cheks. His insulin was held and should be resumed at a much lower dose if at all. His A1c 4.4%. He was educated about not taking 75/25 at bedtime. Weaned off dextrose (3) Sepsis: Code(s): A41.9 - Sepsis, unspecified organism Status: Acute Assessment and Plan: Present on admission with fever, leukocytosis, elevated PCT, bandemia and tachycardia related to PNA. Sepsis could also be causing his low glucose values and altered mental status. WBC better. BCx NGTD. MRSA swab pending. Sputum pending. (4) Pneumonia: Code(s): J18.9 - Pneumonia, unspecified organism Status: Acute Assessment and Plan: Chest x-ray shows left lower lobe airspace disease which may represent chronic pneumonia or other cavitary lesions. WBC 23K and with 15% bands. WBC down to 11K Blood cultures NGTD. Sputum pending. MRSA swab pending. CT Chest showing left lung opacities concerning for aspiration PNA vs multifocal PNA vs asymmetric edema. No necrotic lesions noted. Consider anaerobic infection with his poor dentition and/or Staph as well as community acquired MO. Started on Levaquin; Doxy and Flagyl added. ST eval pending Follow (5) Left shoulder pain: Code(s): M25.512 - Pain in left shoulder Status: Acute Assessment and Plan: He was complaining of left shoulder pain following a fall. The patient reports that he was dropped to the ground on his left shoulder and upper back. He denies other injuries in the fall and also denies hitting his head. Left shoulder xray showing osteoarthritis and likely rotator cuff pathology. No fracture. Follow. (6) Bandemia: Code(s): D72.825 - Bandemia Status: Acute Assessment and Plan: Related to CXR findings. As above. 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 The patient's blood glucose was reviewed on 04/02 Glucose reasonable off dextrose and not on insulin. Continue AccuCheks covering with sliding scale. Hypoglycemia protocol available as needed. Medications on hold. Follow (8) Paroxysmal atrial fibrillation: Code(s): I48.0 - Paroxysmal atrial fibrillation Status: Acute Assessment and Plan: Patient has a history of paroxysmal atrial fibrillation. He is on telemetry maintaining normal sinus rhythm. Will continue verapamil. Continue Eliquis. (9) Essential (primary) hypertension: Code(s): I10 - Essential (primary) hypertension Status: Acute Assessment and Plan: Patient's blood pressure was reviewed on 04/02 Blood pressure remains well controlled. Will continue to monitor (10) Suspected sleep apnea: Code(s): R29.818 - Other symptoms and signs involving the nervous system Status: Acute Assessment and Plan: Apnea link ordered that is concerning for his ARI. AHI was 21. RI was 21. He spent 106 minutes with O2 saturation less than 88%. ABG 7.45/37/48 on RA. Patient could not tolerate noninvasive ventilation. Order O2 2L at night. Repeat Apnea link to assess hypoxia (11) Anemia: Code(s): D64.9 - An
[2023-04-02 13:21] LABS: Glucose Point of Care 172 mg/dl (65-105)
[2023-04-02] MEDS: levoFLOXacin 750 MG/D5W 150 ML 750 MG/150 ML BAG 100 MG IVPB (16:06)
[2023-04-02 16:45] LABS: Glucose Point of Care 197 mg/dl (65-105)
[2023-04-02] MEDS: TERAZOSIN HCL 5 MG CAPSULE PO (20:37)
[2023-04-02 23:00] LABS: Glucose Point of Care 191 mg/dl (65-105)
[2023-04-02 23:00] LABS: Glucose Point of Care 185 mg/dl (65-105)
[2023-04-03] VITALS (7 sets, daily range): BP systolic 126–147; BP diastolic 52–57; PULSE 66–78; RESP 16–22; TEMP 36.8–37.7; O2SAT 90–99
[2023-04-03] MEDS: DOXYCYCLINE 100 MG/NS 100 ML 100 MG/100 ML BAG IVPB (04:14)
[2023-04-03] MEDS: metroNIDAZOLE 500 MG/ISO 100ML 500 MG/100 ML BAG 100 MG IVPB (05:43)
[2023-04-03 07:23] LABS: Hemoglobin 7.8 g/dL (14.0-18.0); Mean Corpuscular HGB Conc 32.5 g/dl (32-36); Mean Corpuscular Hemoglobin 32.9 pg (26-34); Mean Corpuscular Volume 101.3 fl (80-100); Mean Platelet Volume 11.5 fl (7.4-10.4); Platelet Count Result 129 k/mm3 (150-375); Red Blood Count 2.37 M/mm3 (4.6-6.20); Red Cell Distribution Width 17.2 % (11.5-14.5); White Blood Count 8.3 K/mm3 (4.5-10.0)
[2023-04-03 07:31] LABS: Anion Gap 10 mmol/L (8-16); Blood Urea Nitrogen 24 mg/dL (9-20); Calcium 7.8 mg/dL (8.4-10.2); Carbon Dioxide 21 mmol/L (22-30); Chloride 104 mmol/L (98-107); Estimated CRCL calculation 71 ml/min; Estimated Glomerular Filt Rate > 60; Glucose 140 mg/dL (65-110); Potassium 4.3 mmol/L (3.4-5.0); Sodium 135 mmol/L (137-145)
[2023-04-03 08:07] LABS: Glucose Point of Care 145 mg/dl (65-105)
[2023-04-03] MEDS: levoFLOXacin 750 MG TABLET PO (09:09)
[2023-04-03] MEDS: VERAPAMIL HCL ER 240 MG TABLET.ER BY MOUTH ×2 (09:09→21:20)
[2023-04-03] MEDS: OMEGA 3 POLYUNSAT FATTY ACIDS 1 GM CAP PO ×2 (09:10→21:20)
[2023-04-03] MEDS: DOXYCYCLINE HYCLATE 100 MG TABLET PO ×2 (09:10→21:20)
[2023-04-03] MEDS: ATORVASTATIN 20 MG TABLET BY MOUTH (09:10)
[2023-04-03] MEDS: PANTOPRAZOLE 40 MG TABLET PO (09:10)
[2023-04-03] MEDS: APIXABAN 5 MG TABLET PO ×2 (09:10→21:20)
[2023-04-03 11:56] LABS: Glucose Point of Care 136 mg/dl (65-105)
[2023-04-03] MEDS: minoxidiL 10 MG TABLET 20 MG BY MOUTH ×2 (15:25→21:20)
[2023-04-03] MEDS: MULTIVITAMINS /C LUTEIN (CENTRUM SILVER) TABLET *BKC 1 TAB PO (15:26)
[2023-04-03] MEDS: metroNIDAZOLE 250 MG TABLET 500 MG PO ×2 (15:26→21:20)
--- NOTE | 2023-04-03 15:26 | PM.DS ---
DS: Admitting Diagnosis Discharge Date 04/03/23 DS: Summary Time Spent with Patient Time attestation: Total time spent providing and/or coordinating discharge services: DS: Data Data Completed and Pending Labs on day of discharge: Labs from last 24 hours 04/03/23 04/03/23 04/03/23 11:48 07:58 07:02 WBC 8.3 RBC 2.37 L Hgb 7.8 L Hct 24.0 L MCV 101.3 H MCH 32.9 MCHC 32.5 RDW 17.2 H Plt Count 129 L MPV 11.5 H Sodium 135 L Potassium 4.3 Chloride 104 Carbon Dioxide 21 L Anion Gap 10 BUN 24 H Creatinine 1.00 Estim Creat Clear Calc 71 Estimated GFR > 60 Glucose 140 H POC Capillary Glucose 136 H 145 H Calcium 7.8 L 04/02/23 04/02/23 04/02/23 20:35 20:14 16:42 WBC RBC Hgb Hct MCV MCH MCHC RDW Plt Count MPV Sodium Potassium Chloride Carbon Dioxide Anion Gap BUN Creatinine Estim Creat Clear Calc Estimated GFR Glucose POC Capillary Glucose 185 H 191 H 197 H Calcium Preliminary micro results at discharge 04/02/23 04:05 Sputum Culture - Preliminary Sputum 03/31/23 23:27 Blood Culture - Preliminary Blood 03/31/23 23:27 Blood Culture - Preliminary Blood Discharge Plan Discharge Patient Instructions: Apixaban (By mouth) Discharge Medications: No Action Centrum Silver 0.4-300-250 mg-mcg-mcg tablet 1 tablet PO DAILY Humalog Mix 75-25(U-100)Insuln 100 unit/mL (75-25) suspension 45 unit SUB-Q BID omega 2-tpp-fxt-fish oil [Fish Oil] 1,000 mg (120 mg-180 mg) Capsule 1 cap PO Q12H Eliquis 5 mg tablet 5 mg PO Q12H atorvastatin 20 mg tablet See Rx Instructions .ROUTE .COMPLEX Qty: 90 0RF Dose Instruction: Take 1 tablet by mouth once daily Rx Instructions: Take 1 tablet by mouth once daily verapamil 240 mg tablet extended release See Rx Instructions .ROUTE .COMPLEX Qty: 180 1RF Dose Instruction: TAKE 1 TABLET BY MOUTH EVERY 12 HOURS Rx Instructions: TAKE 1 TABLET BY MOUTH EVERY 12 HOURS minoxidil 10 mg tablet See Rx Instructions .ROUTE .COMPLEX Qty: 360 1RF Dose Instruction: Take 1 tablet by mouth twice daily Rx Instructions: Take 2 tablets by mouth twice daily omeprazole 20 mg capsule,delayed release(DR/EC) See Rx Instructions .ROUTE .COMPLEX Qty: 180 1RF Dose Instruction: Take 1 capsule by mouth twice daily Rx Instructions: Take 1 capsule by mouth twice daily (DME) insulin syringe-needle U-100 1/2 mL 31 gauge x 15/64 syringe See Rx Instructions .ROUTE .COMPLEX Qty: 200 1RF Dose Instruction: USE TWICE DAILY Rx Instructions: USE TWICE DAILY (DME) pen needle, diabetic 31 gauge x 1/4 needle See Rx Instructions .Route Qty: 100 1RF Rx Instructions: use twice daily (DME) pen needle, diabetic 31 gauge x 1/4 needle See Rx Instructions .Route Qty: 100 1RF Rx Instructions: use twice daily (DME) lancets 30 gauge misc See Rx Instructions .ROUTE .MEDSUPPLY Qty: 300 1RF Rx Instructions: Patient to test blood sugar 3 times daily terazosin 5 mg capsule 5 mg PO QHS Qty: 30 2RF OneTouch Verio test strips Strip See Rx Instructions .ROUTE .COMPLEX Qty: 300 1RF Dose Instruction: USE STRIP TO CHECK GLUCOSE THREE TIMES DAILY Rx Instructions: USE STRIP TO CHECK GLUCOSE THREE TIMES DAILY Date of admission: 04/02/23 13:57 Primary Care Provider: Colby Rushing Admitting Provider: Jay De León Attending physician on admission: Jay De León Condition: Critical
--- NOTE | 2023-04-03 15:31 | PM.IMPN ---
Progress Note: A&P Assessment and Plan (1) Unresponsive episode: Code(s): R40.4 - Transient alteration of awareness Status: Acute Assessment and Plan: The patient presented to the emergency department via EMS from home for evaluation after he was found unresponsive. CT brain showing no acute findings. [place] related to hypoglycemia. Symptoms resolved with correction of glucose. Follow. (2) Hypoglycemia: Code(s): E16.2 - Hypoglycemia, unspecified Status: Acute Assessment and Plan: Glucose on EMS arrival was 30 and he received dextrose and glucagon and despite appropriate treatment in the ED he remains hypoglycemic. He was started on dextrose drip with frequent Accu-Cheks. His insulin was held and should be resumed at a much lower dose if at all. His A1c 4.4%. He was educated about not taking 75/25 at bedtime. Glucose stabilized and was able to be weaned off dextrose. (3) Sepsis: Code(s): A41.9 - Sepsis, unspecified organism Status: Acute Assessment and Plan: Present on admission with fever, leukocytosis, elevated PCT, bandemia and tachycardia related to PNA. Sepsis could also be causing his low glucose values and altered mental status. WBC better. BCx NGTD. MRSA swab negative. Sputum NGTD. (4) Pneumonia: Code(s): J18.9 - Pneumonia, unspecified organism Status: Acute Assessment and Plan: Chest x-ray shows left lower lobe airspace disease which may represent chronic pneumonia or other cavitary lesions. WBC 23K and with 15% bands. WBC normal now Blood cultures NGTD. Sputum NGTD. MRSA swab negative CT Chest showing left lung opacities concerning for aspiration PNA vs multifocal PNA vs asymmetric edema. No necrotic lesions noted. Consider anaerobic infection with his poor dentition and/or Staph as well as community acquired MO. Started on Levaquin; Doxy and Flagyl added. ST eval noted. Will stop Doxycycliine. Change to oral abx. Follow (5) Left shoulder pain: Code(s): M25.512 - Pain in left shoulder Status: Acute Assessment and Plan: He was complaining of left shoulder pain following a fall. The patient reports that he was dropped to the ground on his left shoulder and upper back. He denies other injuries in the fall and also denies hitting his head. Left shoulder xray showing osteoarthritis and likely rotator cuff pathology. No fracture. Follow. (6) Bandemia: Code(s): D72.825 - Bandemia Status: Acute Assessment and Plan: Related to CXR findings. As above. (7) Insulin dependent type 2 diabetes mellitus: Code(s): E11.9 - Type 2 diabetes mellitus without complications; Z79.4 - long term care administrator (current) use of insulin Status: Acute Assessment and Plan: A1c 4.4. The patient's blood glucose was reviewed on 04/03 Glucose reasonable off dextrose and not on insulin. Continue AccuCheks covering with sliding scale. Hypoglycemia protocol available as needed. Medications on hold. Add metformin Follow (8) Paroxysmal atrial fibrillation: Code(s): I48.0 - Paroxysmal atrial fibrillation Status: Acute Assessment and Plan: Patient has a history of paroxysmal atrial fibrillation. Maintaining normal sinus rhythm. Continue verapamil. Continue Eliquis. (9) Essential (primary) hypertension: Code(s): I10 - Essential (primary) hypertension Status: Acute Assessment and Plan: Patient's blood pressure was reviewed on 04/03 Blood pressure remains well controlled. Will continue to monitor (10) Suspected sleep apnea: Code(s): R29.818 - Other symptoms and signs involving the nervous system Status: Acute Assessment and Plan: Apnea link ordered that is concerning for his ARI. AHI was 21. RI was 21. He spent 106 minutes with O2 saturation less than 88%. ABG 7.45/37/48 on RA. Patient could not tolerate noninvasive ventilation. Repeat APneaLink
[2023-04-03] MEDS: metFORMIN HCL 250 MG TABLET PO (16:36)
[2023-04-03] MEDS: FUROSEMIDE INJ 40 MG/4 ML VIAL 20 MG IV PUSH (16:36)
[2023-04-03 16:58] LABS: Glucose Point of Care 130 mg/dl (65-105)
[2023-04-03] MEDS: TERAZOSIN HCL 5 MG CAPSULE PO (21:20)
[2023-04-03 22:01] LABS: Glucose Point of Care 168 mg/dl (65-105)
[2023-04-04] VITALS (8 sets, daily range): BP systolic 143–145; BP diastolic 60–76; PULSE 60–92; RESP 16–18; TEMP 36.1–36.7; O2SAT 87–98; BMI 33.4
[2023-04-04] MEDS: metroNIDAZOLE 250 MG TABLET 500 MG PO ×2 (06:23→13:41)
[2023-04-04 06:38] LABS: Hematocrit 22.6 % (42.0-52.0); Hemoglobin 7.4 g/dL (14.0-18.0); Immature Platelet Fraction Pct 7.3 % (0.9-11.2); Mean Corpuscular HGB Conc 32.7 g/dl (32-36); Mean Corpuscular Hemoglobin 33.2 pg (26-34); Mean Corpuscular Volume 101.3 fl (80-100); Mean Platelet Volume 11.5 fl (7.4-10.4); Platelet Count Result 140 k/mm3 (150-375); Red Blood Count 2.23 M/mm3 (4.6-6.20); Red Cell Distribution Width 17.1 % (11.5-14.5); White Blood Count 5.7 K/mm3 (4.5-10.0)
[2023-04-04 06:50] LABS: Anion Gap 8 mmol/L (8-16); Blood Urea Nitrogen 25 mg/dL (9-20); CRP 4.9 mg/dL (<1.0); Calcium 8.1 mg/dL (8.4-10.2); Carbon Dioxide 25 mmol/L (22-30); Chloride 105 mmol/L (98-107); Estimated CRCL calculation 65 ml/min; Estimated Glomerular Filt Rate > 60; Glucose 147 mg/dL (65-110); Potassium 3.8 mmol/L (3.4-5.0); Sodium 138 mmol/L (137-145)
[2023-04-04 08:20] LABS: Glucose Point of Care 158 mg/dl (65-105)
[2023-04-04] MEDS: levoFLOXacin 750 MG TABLET PO (09:37)
[2023-04-04] MEDS: VERAPAMIL HCL ER 240 MG TABLET.ER BY MOUTH (09:37)
[2023-04-04] MEDS: OMEGA 3 POLYUNSAT FATTY ACIDS 1 GM CAP PO (09:37)
[2023-04-04] MEDS: PANTOPRAZOLE 40 MG TABLET PO (09:38)
[2023-04-04] MEDS: ATORVASTATIN 20 MG TABLET BY MOUTH (09:38)
[2023-04-04] MEDS: APIXABAN 5 MG TABLET PO (09:38)
[2023-04-04 11:35] LABS: Glucose Point of Care 151 mg/dl (65-105)
[2023-04-04] MEDS: minoxidiL 10 MG TABLET 20 MG BY MOUTH (11:37)
[2023-04-04] MEDS: MULTIVITAMINS /C LUTEIN (CENTRUM SILVER) TABLET *BKC 1 TAB PO (11:37)
--- NOTE | 2023-04-04 12:00 | HOMEO2EVAL ---
Evaluation was performed at [facility] Home Oxygen Evaluation RC: Home Oxygen (O2) Evaluation Start: 04/03/23 15:42 Freq: ONCE Status: Active Protocol: RPE Activity Type Activity Date Activity User E-sign Co-sign Detail Recorded Client Recorded Date Recorded By Document 04/04/23 11:20 PK [email or web address] 04/04/23 11:59 PK Document 04/04/23 11:25 PK [email or web address] 04/04/23 11:59 PK Document 04/04/23 11:30 [facility] [email or web address] 04/04/23 11:59 [facility] Document 04/04/23 11:45 [facility] [email or web address] 04/04/23 11:59 PK 04/04/23 04/04/23 04/04/23 11:20 11:25 11:30 Home O2 Evaluation [Oxygen] -Test Phase Resting Exercise Exercise -Oxygen Delivery Room Air Room Air Nasal Cannula -Oxygen Flow Rate (L/min) 1 [Pulse Oximetry] -Pulse Oximetry (90-100 %) 92 87 L 91 [Pulse Rate] -Pulse Rate (60-100 beats/min) 79 92 91 [Charges] -Treatment Charges O2 Evaluation - Inpatient 04/04/23 11:45 Home O2 Evaluation [Oxygen] -Test Phase Resting -Oxygen Delivery Room Air -Oxygen Flow Rate (L/min) [Pulse Oximetry] -Pulse Oximetry (90-100 %) 92 [Pulse Rate] -Pulse Rate (60-100 beats/min) 80 [Charges] -Treatment Charges
--- NOTE | 2023-04-04 12:01 | PCRCNOTE ---
HOME O2 EVAL COMPLETE. PATIENT REQUIRES 1LPM WITH ACTIVITY AND ROOM AIR WITH REST AND 2.5 LPM NOCTURNALLY. RN NOTIFIED. [facility] . TANK TAKEN TO ROOM.
--- NOTE | 2023-04-04 13:22 | PCCCNOTE ---
On 04/04/23, the student, [Angeles Arana], provided care and completed [facility] documentation on this patient. I have reviewed the student's documentation and agree with the findings.
--- NOTE | 2023-04-04 13:47 | PC.NURSE ---
Outpatient referral for diabetes diet teaching and medication teaching started and faxed to PCP- Colby Rushing.
--- NOTE | 2023-04-04 15:19 | PM.DS ---
DS: Admitting Diagnosis Discharge Date 04/04/23 Admitting Diagnosis Altered mental status related to hypoglycemia DS: Discharge Diagnosis Discharge Diagnosis (1) Unresponsive episode: Code(s): R40.4 - Transient alteration of awareness Status: Acute (2) Hypoglycemia: Code(s): E16.2 - Hypoglycemia, unspecified Status: Acute (3) Sepsis: Code(s): A41.9 - Sepsis, unspecified organism Status: Acute (4) Pneumonia: Code(s): J18.9 - Pneumonia, unspecified organism Status: Acute (5) Left shoulder pain: Code(s): M25.512 - Pain in left shoulder Status: Acute (6) Bandemia: Code(s): D72.825 - Bandemia Status: Acute (7) Insulin dependent type 2 diabetes mellitus: Code(s): E11.9 - Type 2 diabetes mellitus without complications; Z79.4 - nursing home (current) use of insulin Status: Acute (8) Paroxysmal atrial fibrillation: Code(s): I48.0 - Paroxysmal atrial fibrillation Status: Acute (9) Essential (primary) hypertension: Code(s): I10 - Essential (primary) hypertension Status: Acute (10) Suspected sleep apnea: Code(s): R29.818 - Other symptoms and signs involving the nervous system Status: Acute (11) Anemia: Code(s): D64.9 - Anemia, unspecified Status: Acute DS: Summary Hospital Course Reason for hospitalization: 73yo male with insulin dependent DM, CAD, pAFib and HTN here for altered mental status related to hypoglycemia. Please see H&P for details. Hospital Course: The patient presented to the emergency department via EMS from home for evaluation after he was found unresponsive. CT brain showing no acute findings. [place] related to hypoglycemia. Symptoms resolved with correction of glucose. Glucose on EMS arrival was 30 and he received dextrose and glucagon and despite appropriate treatment in the ED, he remained hypoglycemic. He was started on dextrose drip with frequent Accu-Cheks. His insulin was held. His A1c 4.4%. He was educated about not taking 75/25 at bedtime. He has lost 30+ pounds recently. Glucose stabilized and was able to be weaned off IV dextrose.? It was felt that the hypoglycemia was related to weight loss and over-treatment of his DM plus sepsis. Sepsis was present on admission with fever, leukocytosis, elevated PCT, bandemia and tachycardia related to PNA. Chest x-ray shows left lower lobe airspace disease which may represent chronic pneumonia or other cavitary lesions.?WBC was 23K with 15% bands. He was started on Levaquin;? Doxy and Flagyl added.? WBC normal now. Blood cultures NGTD. Sputum NGTD. MRSA swab was negative. CT Chest showing left lung opacities concerning for aspiration PNA vs multifocal PNA vs asymmetric edema. No necrotic lesions noted. Consider anaerobic infection with his poor dentition and/or Staph as well as community acquired PNA. Speech therapy did see the patient here and no concerns with bedside swallow evaluation. He was complaining of left shoulder pain following a fall.? The patient reports that he was dropped to the ground on his left shoulder and upper back. He denies other injuries in the fall and also denies hitting his head. Left shoulder xray showing osteoarthritis and likely rotator cuff pathology. No fracture. Symptoms resolved. Patient does have insulin dependent type 2 diabetes mellitus but A1c 4.4.? The patient's blood glucose was monitored with AccuCheks covering with sliding scale.? Hypoglycemia protocol was available as needed.?Metformin added but he developed nausea so this was stopped. Patient has a history of paroxysmal atrial fibrillation.?He maintained normal sinus rhythm.? We continued verapamil and Eliquis. Patient has suspected obstructive sleep apnea. Apnea link ordered that is concerning for his ARI.? AHI was 21.? RI was 21.? He spent 106 minutes with O2 saturation less than 88%.? ABG 7.45/37/48 on RA. Patient could not tolerate noninvasive vent
[2023-04-04 16:47] LABS: Glucose Point of Care 162 mg/dl (65-105)
[2023-04-05 13:28] LABS: C-Peptide 0.31 ng/mL (0.80-3.85)
--- NOTE | 2023-04-08 11:37 | PC.NURSE ---
C peptide is low at 0.31 Blood cultures are negative. Dr. Marino chen.
== END 2023-04-04 17:50 | disposition home or self-care (01) | DRG 871 ==
LOC: ANHED 14:26 → ANHIMU 17:35 → ANH3MEDSUR 04-02 12:17
PROVIDERS: Physician Assistant; Admitting Provider Hospitalist; Emergency Provider Emergency Medicine; PCP Family Medicine; Visit Provider Internal Medicine
DX: A41.9 Sepsis, unspecified organism (principal); J18.9 Pneumonia, unspecified organism; E11.649 Type 2 diabetes mellitus with hypoglycemia without coma; Z20.822 Contact with and (suspected) exposure to COVID-19; I48.0 Paroxysmal atrial fibrillation; M25.512 Pain in left shoulder; W19.XXXA Unspecified fall, initial encounter; I10 Essential (primary) hypertension; K21.9 Gastro-esophageal reflux disease without esophagitis; E66.9 Obesity, unspecified; E78.2 Mixed hyperlipidemia; G47.33 Obstructive sleep apnea (adult) (pediatric); I25.10 Atherosclerotic heart disease of native coronary artery without angina pectoris; Z66 Do not resuscitate; Z86.73 Personal history of transient ischemic attack (TIA), and cerebral infarction without residual deficits; Z68.33 Body mass index [BMI] 33.0-33.9, adult; Z87.891 Personal history of nicotine dependence; I25.2 Old myocardial infarction; Z79.01 Long term (current) use of anticoagulants; Z89.512 Acquired absence of left leg below knee; Z89.511 Acquired absence of right leg below knee; Z79.4 Long term (current) use of insulin
CPT/HCPCS: 36415; 36600; 70450; 71045; 71046; 71250; 73030; 80048; 80053; 81001; 82805; 82948; 83036; 83735; 84145; 84443; 84681; 85025; 85027; 85055; 85652; 86140; 87040; 87070; 87081; 87205; 87636; 87651; 92610; 94618; 94762; 96366; 96367; 96374; 96376; 99285; A9270; G0378; J1836; J1940; J1956; J7070

== ENCOUNTER 2023-04-15 13:52 | Outpatient (CLI) | payer MEDICARE, MEDICAID, SELFPAY ==
[2023-04-15 14:12] LABS: Hematocrit 26.2 % (42.0-52.0); Hemoglobin 8.6 g/dL (14.0-18.0); Mean Corpuscular HGB Conc 32.8 g/dl (32-36); Mean Corpuscular Hemoglobin 33.3 pg (26-34); Mean Corpuscular Volume 101.6 fl (80-100); Mean Platelet Volume 10.4 fl (7.4-10.4); Platelet Count Result 189 k/mm3 (150-375); Red Blood Count 2.58 M/mm3 (4.6-6.20); Red Cell Distribution Width 18.1 % (11.5-14.5); White Blood Count 4.6 K/mm3 (4.5-10.0)
[2023-04-15 14:41] LABS: Iron 196 ug/dL (49-181)
[2023-04-15 14:52] LABS: Percent Iron Saturation 76 % (20-50)
[2023-04-15 15:36] LABS: Folic Acid 17.8 ng/mL (2.76->20)
== END 2023-04-15 13:53 | disposition home or self-care (01) ==
PROVIDERS: PCP Nurse Practitioner; Visit Provider Internal Medicine
DX: D64.9 Anemia, unspecified (principal)
CPT/HCPCS: 36415; 82607; 82728; 82746; 83540; 83550; 85027

== ENCOUNTER 2023-05-05 13:27 | Outpatient (CLI) | payer MEDICARE, MEDICAID, SELFPAY ==
--- NOTE | ~2023-05-05 | XR_ITS ---
XR chest 2V 05/05/2023 14:00 Indication: Pneumonia. Cough. Procedure: 2 view chest Comparison: No prior studies for comparison. Findings: Heart size normal. No focal air space disease, pulmonary edema, pleural effusion or suspect ed pneumothorax. Calcified granuloma left upper thorax. There is dextroscoliosis of the thoracic spin e. Impression: 1: No acute cardiopulmonary disease. Reviewed, dictated and finalized at location L. Impression: 1: No acute cardiopulmonary disease.
[2023-05-05 13:55] LABS: Hematocrit 26.6 % (42.0-52.0); Hemoglobin 8.6 g/dL (14.0-18.0); Mean Corpuscular HGB Conc 32.3 g/dl (32-36); Mean Corpuscular Hemoglobin 33.2 pg (26-34); Mean Corpuscular Volume 102.7 fl (80-100); Mean Platelet Volume 11.2 fl (7.4-10.4); Platelet Count Result 129 k/mm3 (150-375); Red Blood Count 2.59 M/mm3 (4.6-6.20); Red Cell Distribution Width 18.7 % (11.5-14.5); White Blood Count 6.2 K/mm3 (4.5-10.0)
[2023-05-05 14:30] LABS: Iron 108 ug/dL (49-181)
[2023-05-05 14:39] LABS: Percent Iron Saturation 40 % (20-50)
[2023-05-05 15:14] LABS: Folic Acid 13.9 ng/mL (2.76->20)
== END 2023-05-05 13:28 | disposition home or self-care (01) ==
PROVIDERS: PCP Nurse Practitioner; Visit Provider Nurse Practitioner
DX: J18.9 Pneumonia, unspecified organism (principal); D64.9 Anemia, unspecified
CPT/HCPCS: 36415; 71046; 82607; 82746; 83540; 83550; 85027

== ENCOUNTER 2023-06-23 11:03 | Outpatient (CLI) | payer MEDICARE, MEDICAID, SELFPAY ==
[2023-06-23 12:15] LABS: Hemoglobin 9.6 g/dL (14.0-18.0); Mean Corpuscular Hemoglobin 33.1 pg (26-34); Mean Corpuscular Volume 103.4 fl (80-100); Mean Platelet Volume 11.1 fl (7.4-10.4); Platelet Count Result 121 k/mm3 (150-375); Red Cell Distribution Width 17.2 % (11.5-14.5); White Blood Count 4.3 K/mm3 (4.5-10.0)
== END 2023-06-23 11:04 | disposition home or self-care (01) ==
PROVIDERS: PCP Nurse Practitioner; Visit Provider Nurse Practitioner
DX: D64.9 Anemia, unspecified (principal)
CPT/HCPCS: 36415; 85027

== ENCOUNTER 2023-06-29 01:45 | Day surgery (SDC) | payer MEDICARE, MEDICAID, SELFPAY ==
[2023-06-22 14:10] VITALS: BMI 33.0
--- NOTE | 2023-06-24 09:17 | PC.NURSE ---
I spoke with pt regarding his Eliquis and when to stop it. Pt still voicing concerns regarding his insulin doses, he denies receiving a call with instructions for insulin. I called the office and spoke with Lu Lakhani MA, she states they did call him 06/23/2023 around 2:30 pm and gave him instructions received per Willy Baca LOCKER ROOM ATTENDANT to hold his insulin on 06/28/2023 and on 06/29/2023 until after his procedure and is able to eat, I called the patient back and reviewed this with him, he does not remember speaking to them but states I had alot of calls yesterday . Pt verbalizes he understands what he is suppose to do.
--- NOTE | 2023-06-28 16:55 | PM.HPGS ---
History of Present Illness History of Present Illness Consent: Risks, benefits, and alternatives have been discussed and questions answered. Patient agrees to proceed with procedure. Chief complaint: other fecal abnormalities, anemia Narrative: Eric Junior is a 73 year old male Who was found to be anemic. He has positive stool Hemoccult. Review of Systems Review of Systems: All systems reviewed & are unremarkable except as noted in HPI and below PMFSH Past Medical History Medical History Anemia Cerebrovascular accident No residual symptoms. Chronic anticoagulation Essential (primary) hypertension Gastroesophageal reflux disease Heart murmur Insulin dependent type 2 diabetes mellitus Mixed hyperlipidemia Non-STEMI (non-ST elevated myocardial infarction) Obesity Paroxysmal atrial fibrillation Peripheral vascular disease Surgical History Surgical History History of below-knee amputation of both lower extremities History of cataract extraction History of eye surgery History of hernia repair Family History Family History Father Cerebrovascular accident Mother Cerebrovascular accident Sibling Family history of diabetes mellitus in first degree relative Other Diabetes mellitus Social History Social History Social History: Healthcare power of work car operator: Drake Junior, brother. Code status: DNR. Smoking packs per day: 0.25 Smoking cigarettes per day: 5.0 Years smoked: 30 Smoking pack-years: 7.50 Smoking status: Former smoker Tobacco type: cigars Second hand tobacco smoke exposure: No Alcohol intake: current Drinks per week: 42 Substance use: never Substance use type: does not use Lack of Transportation: No Lack of Food: Never True Current Housing: I Have Housing Concerned About Future Housing: No Difficulty Paying Gas/Electric Bills: No Difficulty Paying for Meds: No Currently Unemployed: No Education: Associate Degree Difficulty w/ Childcare or Family Care: No Living arrangements: with family Spiritual care concerns: No Meds Home Medications and Allergies Home Medications Medication Instructions Recorded Confirmed Type fwcxdgsr-qdp-dlclc acid 0.4 1 tablet PO DAILY 08/01/19 06/22/23 History mg-lycopene 300 mcg-lutein 250 mcg tablet (Centrum Silver) omega 4-hjp-wiu-fish oil 1,000 mg 1 cap PO Q12H 10/18/22 06/22/23 History (120 mg-180 mg) capsule (Fish Oil) minoxidil 10 mg tablet See Rx Instructions .Route 12/27/22 06/22/23 Rx .COMPLEX #360 ea omeprazole 20 mg capsule,delayed See Rx Instructions .Route 12/27/22 06/22/23 Rx release .COMPLEX #180 caps verapamil 240 mg tablet,extended See Rx Instructions .Route 12/27/22 06/22/23 Rx release .COMPLEX #180 tabs lancets 30 gauge #300 ea 02/08/23 04/29/23 Rx blood sugar diagnostic (OneTouch See Rx Instructions .Route 02/28/23 04/29/23 Rx Verio test strips) .COMPLEX #300 ea apixaban 5 mg tablet (Eliquis) 5 mg PO Q12H 03/31/23 06/22/23 History atorvastatin 20 mg tablet See Rx Instructions .Route 04/13/23 06/22/23 Rx .COMPLEX #90 tabs insulin lispro protamine-lispro 21 unit subcut TIDWMEAL 04/28/23 06/22/23 History 100 unit/mL (75-25) subcutaneous pen terazosin 5 mg capsule 5 mg PO QHS #30 caps 05/26/23 06/22/23 Rx Allergies Allergy/AdvReac Type Severity Reaction Status Date / Time penicillin G Allergy Severe Hives Verified 06/29/23 12:17 Penicillins Allergy Severe Unknown Verified 06/29/23 12:17 DAVE Inhibitors Allergy Intermediate Rash Verified 06/29/23 12:17 hydralazine Allergy Intermediate Rash Verified 06/29/23 12:17 onion Allergy Intermediate Hives Verified 06/29/23 12:17 tazobactam Allergy Intermediate BETALACTAMASE Verified 06/29/23 12:17
[2023-06-29 12:19] VITALS: BP 176/79; PULSE 93; RESP 18; TEMP 36.9; O2SAT 97
[2023-06-29] MEDS: LACTATED RINGERS 1,000 ML 150 ML IV CONT (12:48)
--- NOTE | 2023-06-29 12:50 | WPDANESEPPF ---
Anes - Initial Pre Proc Eval Procedure: Operation Date: 06/29/23 13:45 Proposed Procedures p Colonoscopy - Baltazar Duncan MD Date/Time: 06/29/23 12:50 Surgeon: Baltazar Duncan MD Pre Op Diagnosis: other fecal abnormalities, anemia Patient Data Age: 73 Gender: M Height: 1.78 m Weight: 102 kg Last Vital Signs Temp 98.5 F 06/29/23 12:19 Pulse 93 06/29/23 12:19 Resp 18 06/29/23 12:19 BP 176/79 H 06/29/23 12:19 Pulse Ox 97 06/29/23 12:19 O2 Del Method Room Air 06/29/23 12:19 Allergies Allergy/AdvReac Type Severity Reaction Status Date / Time penicillin G Allergy Severe Hives Verified 06/29/23 12:17 Penicillins Allergy Severe Unknown Verified 06/29/23 12:17 DAVE Inhibitors Allergy Intermediate Rash Verified 06/29/23 12:17 hydralazine Allergy Intermediate Rash Verified 06/29/23 12:17 onion Allergy Intermediate Hives Verified 06/29/23 12:17 tazobactam Allergy Intermediate BETALACTAMASE Verified 06/29/23 12:17 INHIBITORS vancomycin Allergy Intermediate Rash Verified 06/29/23 12:17 Home Medications Medication Instructions Recorded Confirmed Type ekbclstw-vlf-hfxyf acid 0.4 1 tablet PO DAILY 08/01/19 06/22/23 History mg-lycopene 300 mcg-lutein 250 mcg tablet (Centrum Silver) omega 8-vmx-sto-fish oil 1,000 mg 1 cap PO Q12H 10/18/22 06/22/23 History (120 mg-180 mg) capsule (Fish Oil) minoxidil 10 mg tablet See Rx Instructions .Route 12/27/22 06/22/23 Rx .COMPLEX #360 ea omeprazole 20 mg capsule,delayed See Rx Instructions .Route 12/27/22 06/22/23 Rx release .COMPLEX #180 caps verapamil 240 mg tablet,extended See Rx Instructions .Route 12/27/22 06/22/23 Rx release .COMPLEX #180 tabs lancets 30 gauge #300 ea 02/08/23 04/29/23 Rx blood sugar diagnostic (OneTouch See Rx Instructions .Route 02/28/23 04/29/23 Rx Verio test strips) .COMPLEX #300 ea apixaban 5 mg tablet (Eliquis) 5 mg PO Q12H 03/31/23 06/22/23 History atorvastatin 20 mg tablet See Rx Instructions .Route 04/13/23 06/22/23 Rx .COMPLEX #90 tabs insulin lispro protamine-lispro 21 unit subcut TIDWMEAL 04/28/23 06/22/23 History 100 unit/mL (75-25) subcutaneous pen terazosin 5 mg capsule 5 mg PO QHS #30 caps 05/26/23 06/22/23 Rx Patient hx anesthesia problems: none Family hx anesthesia problems: none Results Review: All pre-operative results and documents have been reviewed as part of the pre-operative evaluation. [facility] Past Medical History Medical History Anemia Cerebrovascular accident No residual symptoms. Chronic anticoagulation Essential (primary) hypertension Gastroesophageal reflux disease Heart murmur Insulin dependent type 2 diabetes mellitus Mixed hyperlipidemia Non-STEMI (non-ST elevated myocardial infarction) Obesity Paroxysmal atrial fibrillation Peripheral vascular disease Surgical History Surgical History History of below-knee amputation of both lower extremities History of cataract extraction History of eye surgery History of hernia repair Family History Family History Father Cerebrovascular accident Mother Cerebrovascular accident Sibling Family history of diabetes mellitus in first degree relative Other Diabetes mellitus Social History Social History Social History: Healthcare power of trademark attorney: Drakepoly Christineadan, brother. Code status: DNR. Smoking packs per day: 0.25 Smoking cigarettes per day: 5.0 Years smoked: 30 Smoking pack-years: 7.50 Smoking status: Former smoker Tobacco type: cigars Second hand tobacco smoke exposure: No Alcohol intake: current Drinks per week: 42 Substance use: never Substance use type: does not use Lack of Transportation: No Lack of Food: Never True Current Housing: I Have Ho
[2023-06-29 13:01] LABS: Glucose Point of Care 92 mg/dl (65-105)
[2023-06-29 13:26] VITALS: BP 116/53; PULSE 67; RESP 14; O2SAT 97
[2023-06-29 13:36] VITALS: BP 142/58; PULSE 69; RESP 16; O2SAT 98
[2023-06-29 13:46] VITALS: BP 147/58; PULSE 70; RESP 22; O2SAT 98
[2023-06-29 13:55] LABS: Glucose Point of Care 88 mg/dl (65-105)
== END 2023-06-29 14:04 | disposition home or self-care (01) ==
PROVIDERS: PCP Nurse Practitioner; Visit Provider Internal Medicine Gastroenterology
PROC: 0DJD8ZZ Inspection of Lower Intestinal Tract, Via Natural or Artificial Opening Endoscopic (ICD-10-PCS; CPT 45378; principal; 2023-06-29 13:45)
DX: Z12.11 Encounter for screening for malignant neoplasm of colon (principal); K57.30 Diverticulosis of large intestine without perforation or abscess without bleeding; D12.2 Benign neoplasm of ascending colon; D64.9 Anemia, unspecified; R19.5 Other fecal abnormalities; I48.0 Paroxysmal atrial fibrillation; E11.51 Type 2 diabetes mellitus with diabetic peripheral angiopathy without gangrene; I25.2 Old myocardial infarction; E78.2 Mixed hyperlipidemia; I10 Essential (primary) hypertension; K21.9 Gastro-esophageal reflux disease without esophagitis; Z86.73 Personal history of transient ischemic attack (TIA), and cerebral infarction without residual deficits; E66.9 Obesity, unspecified; Z68.32 Body mass index [BMI] 32.0-32.9, adult; Z79.01 Long term (current) use of anticoagulants; Z79.4 Long term (current) use of insulin; Z87.891 Personal history of nicotine dependence
CPT/HCPCS: 45381; 45385; 82948; 88305; J2704; J7120